=== PATIENT | male | born 1965 | race Two or more races ===

== ENCOUNTER 2020-10-01 18:05 | Inpatient (IN) | payer MEDICARE, MEDICAID ==
[~2020-10-01] VITALS: Ht 170.2 cm; Wt 75.5 kg
[2020-10-01 23:21] LABS: Urine Bacteria NONE SEEN /hpf (None Seen); Urine Blood 1+ /uL (Negative); Urine Budding Yeast MANY /hpf (None Seen); Urine Hyaline Cast FEW /lpf (0 - 2); Urine Specific Gravity 1.018 (1.001-1.035); Urine WBC 5 /hpf (0 - 3)
[2020-10-02 00:33] LABS: Basophils # (auto) 0 10 ^3/uL (0-0.2); Basophils % (auto) 0.2 % (0.0-2.0); Eosinophils # (auto) 0 10 ^3/uL (0-0.8); Hematocrit 48.8 % (41.0-53.0); Hemoglobin 15.1 g/dL (13.5-17.5); Lymphocytes # (auto) 0.3 10 ^3/uL (0.4-5.4); Lymphocytes % (auto) 2.3 % (10.0-50.0); Mean Corpuscular Hemoglobin 29.1 pg (28.0-32.0); Mean Corpuscular Volume 93.9 fL (80.0-100.0); Monocytes # (auto) 0.6 10 ^3/uL (0-1.3); Monocytes % (auto) 4.2 % (0.0-12.0); Neutrophils # (auto) 13.1 10 ^3/uL (1.6-8.6); Neutrophils % (auto) 93.3 % (37.0-80.0); Red Cell Distribution Width 17.3 % (11.8-14.3); White Blood Cell 14.1 10^3/uL (4.4-10.8)
[2020-10-02 01:09] LABS: Anion Gap 19 (5-15); Calcium 8.8 mg/dL (8.5-10.1); Carbon Dioxide 13 mmol/L (21-32); Chloride 113 mmol/L (98-107); Sodium 145 mmol/L (136-145)
[2020-10-02 01:18] LABS: Alanine Aminotransferase 10 U/L (16-61); Alkaline Phosphatase 95 U/L (45-117); Aspartate Aminotransferase 11 U/L (15-37); BUN/Creatinine Ratio 34.1; GFR African American 23 mL/min; GFR Non-African American 19 mL/min; Total Protein 7.9 g/dL (6.4-8.2)
[2020-10-02 01:21] LABS: Bilirubin, Total 0.5 mg/dL (0.2-1.0)
[2020-10-02 01:25] LABS: Blood Urea Nitrogen 120 mg/dL (7-18); Glucose 931 mg/dL (74-106); Magnesium 4.2 mg/dL (1.6-2.6); Potassium 6.5 mmol/L (3.5-5.1)
[2020-10-02] MEDS ORDERED: InsuLIN R (HUMAN) 100 UNITS in SODIUM CHL 0.9% 99 ML IV SCH (01:30)
[2020-10-02] MEDS ORDERED: INSULIN LANTUS (GLARGINE) 1 /0.01ml (100units/ml) SC ONE ×2 (01:30→06:35)
[2020-10-02] MEDS ORDERED: DEXTROSE (50%) 50ML SYRG IV PRN (01:30)
[2020-10-02] MEDS: ACCU-CHEK COMFORT CURVE STRIP VI SCH ×14 (01:55→21:14)
[2020-10-02] MEDS ORDERED: InsuLIN REG 1unit/0.01ml Soln (100units/ml) ONE (02:07)
[2020-10-02] MEDS: InsuLIN R (HUMAN) 100 UNITS in SODIUM CHL 0.9% 99 ML IV SCH ×2 (05:15→15:49)
[2020-10-02] MEDS ORDERED: SOD CHL 0.45% 1,000 ML IV ONE (06:00)
[2020-10-02] MEDS ORDERED: DOCUSATE SOD 100 MG CAP PO PRN (06:00)
[2020-10-02] MEDS ORDERED: MORPHINE SULFATE INJECTION 2 MG/ML SYRG IV PRN (06:00)
[2020-10-02] MEDS ORDERED: NITROGLYCERIN 0.4 MG SL TAB SL PRN (06:00)
[2020-10-02] MEDS ORDERED: HYDROcodone-ACET 5/325MG TAB PO PRN (06:00)
[2020-10-02] MEDS: INSULIN LANTUS (GLARGINE) 1 /0.01ml (100units/ml) SC SCH ×3 (06:37→21:16)
[2020-10-02] MEDS: AZITHROMYCIN 500MG/ 250ML 250 ML IV SCH (07:58)
[2020-10-02] MEDS ORDERED: cefTRIAXone 1GM/50ML D5W 50 ML IV SCH (09:00)
[2020-10-02 09:08] LABS: Basophils # (auto) 0 10 ^3/uL (0-0.2); Basophils % (auto) 0.1 % (0.0-2.0); Eosinophils # (auto) 0 10 ^3/uL (0-0.8); Hematocrit 52.3 % (41.0-53.0); Lymphocytes # (auto) 0.3 10 ^3/uL (0.4-5.4); Lymphocytes % (auto) 2.4 % (10.0-50.0); Mean Corpuscular Hemoglobin 29.2 pg (28.0-32.0); Mean Corpuscular Hgb Conc. 32.5 g/dL (32.0-36.0); Mean Corpuscular Volume 89.7 fL (80.0-100.0); Monocytes # (auto) 0.4 10 ^3/uL (0-1.3); Monocytes % (auto) 3.3 % (0.0-12.0); Neutrophils # (auto) 12.5 10 ^3/uL (1.6-8.6); Neutrophils % (auto) 94.2 % (37.0-80.0); Nucleated Red Blood Cells % 0.1 %; Red Blood Cells 5.83 10^6/uL (4.5-5.90); Red Cell Distribution Width 16.5 % (11.8-14.3); White Blood Cell 13.3 10^3/uL (4.4-10.8)
[2020-10-02] MEDS ORDERED: AZITHROMYCIN 500MG/ 250ML 250 ML IV SCH (10:00)
[2020-10-02] MEDS: ZINC SULFATE 220mg CAP or TAB PO SCH (10:00)
[2020-10-02] MEDS: MULTIPLE VITAMIN TAB PO SCH (10:00)
[2020-10-02] MEDS: FAMOTIDINE 20 MG TAB PO SCH (10:00)
[2020-10-02] MEDS ORDERED: FAMOTIDINE 20 MG TAB PO SCH (10:00)
[2020-10-02 10:05] LABS: Calcium 9.6 mg/dL (8.5-10.1); Potassium 5.5 mmol/L (3.5-5.1)
[2020-10-02 10:14] LABS: BUN/Creatinine Ratio 31.9; Bilirubin, Total 0.4 mg/dL (0.2-1.0); Total Protein 9.4 g/dL (6.4-8.2)
[2020-10-02 10:29] LABS: Magnesium 4.7 mg/dL (1.6-2.6)
[2020-10-02 12:00] LABS: Albumin 2.3 g/dL (3.4-5.0)
[2020-10-02] MEDS ORDERED: LORazepam 2MG/ML-1ML VIAL IV ONE (15:00)
[2020-10-02] MEDS ORDERED: LORazepam 2MG/ML-1ML VIAL ONE (15:01)
[2020-10-02] MEDS ORDERED: cefTRIAXone 1GM/50ML D5W 50 ML IV ONE (15:45)
[2020-10-02] MEDS ORDERED: SODIUM BICARBONATE 8.4% INJ 50ML SYRINGE ONE ×3 (17:04→20:18)
[2020-10-02] MEDS ORDERED: ETOMIDATE (2MG/ML) 20ML VIAL IV ONE ×2 (17:06→17:30)
[2020-10-02] MEDS ORDERED: SUCCINYLCHOLINE CHLORIDE 20 MG/ML 10ML VIAL IV ONE ×2 (17:06→17:30)
[2020-10-02] MEDS ORDERED: PROPOFOL 100 ML IV ONE (17:08)
[2020-10-02] MEDS ORDERED: fentaNYL Drip 2500mCg/250mlNS 250 ML IV ONE (17:08)
[2020-10-02 17:21] VITALS: BP 72/47
[2020-10-02] MEDS ORDERED: NOREPINEPHRINE 8 MG/250ML KIT 250 ML IV ONE (17:29)
[2020-10-02] MEDS: fentaNYL Drip 2500mCg/250mlNS 250 ML IV SCH (17:30)
[2020-10-02] MEDS ORDERED: ENOXAPARIN SOD 40 MG/0.4 ML SYRINGE SC ONE (18:30)
[2020-10-02] MEDS ORDERED: SODIUM BICARBONATE 8.4 % INJ 50ML VIAL IV ONE (18:30)
[2020-10-02] MEDS: NOREPINEPHRINE 8 MG/250ML KIT 250 ML IV SCH (19:07)
[2020-10-02 19:15] LABS: BUN/Creatinine Ratio 27.9; Calcium 8.7 mg/dL (8.5-10.1)
[2020-10-02 19:31] LABS: Potassium 6.1 mmol/L (3.5-5.1)
[2020-10-02] MEDS: PROPOFOL 100 ML IV SCH (20:03)
[2020-10-02] MEDS: MIDAZOLAM DRIP 50 mg/50mL 50 ML IV SCH (20:04)
[2020-10-02] MEDS: SODIUM BICARBONATE 50ML VIAL 50 ML in SOD CHL 0.45% 1,000 ML IV SCH (20:34)
[2020-10-02] MEDS ORDERED: InsuLIN REG 1unit/0.01ml Soln (100units/ml) IV ONE (21:30)
[2020-10-02] MEDS ORDERED: DEXTROSE (50%) 50ML SYRG IV ONE (21:30)
[2020-10-02] MEDS ORDERED: SODIUM ZIRCONIUM CYCL 10 GM PAK PO ONE (21:30)
[2020-10-02 22:19] VITALS: BP 135/70
[2020-10-03] MEDS: InsuLIN REG 1unit/0.01ml Soln (100units/ml) SC SCH ×6 (00:14→20:35)
[2020-10-03] MEDS: ACCU-CHEK COMFORT CURVE STRIP VI SCH ×6 (00:14→20:34)
[2020-10-03 02:45] VITALS: BP 127/81
[2020-10-03] MEDS: ACETAMINOPHEN 325 MG TAB PO PRN ×3 (04:04→19:56)
[2020-10-03] MEDS ORDERED: SODIUM BICARBONATE 8.4% INJ 50ML SYRINGE ONE (04:14)
[2020-10-03] MEDS: SODIUM BICARBONATE 50ML VIAL 50 ML in SOD CHL 0.45% 1,000 ML IV SCH (05:17)
[2020-10-03 06:29] VITALS: BP 98/60
[2020-10-03 07:48] LABS: Hematocrit 40.5 % (41.0-53.0); Hemoglobin 13.9 g/dL (13.5-17.5); Mean Corpuscular Hemoglobin 29.6 pg (28.0-32.0); Mean Corpuscular Hgb Conc. 34.2 g/dL (32.0-36.0); Mean Corpuscular Volume 86.4 fL (80.0-100.0); Red Blood Cells 4.68 10^6/uL (4.5-5.90); Red Cell Distribution Width 15.8 % (11.8-14.3); White Blood Cell 11.2 10^3/uL (4.4-10.8)
[2020-10-03 08:01] LABS: Basophils % (manual) 0 (0.0-2.0); Blast Cells 0; Eosinophils % (manual) 0 (0-7); Myelocytes % 0; Promyelocytes % 0; Reactive Lymphocytes 0
[2020-10-03 08:09] LABS: Potassium 4.7 mmol/L (3.5-5.1)
[2020-10-03 08:21] LABS: Albumin 1.6 g/dL (3.4-5.0); BUN/Creatinine Ratio 35.1; Bilirubin, Total 0.4 mg/dL (0.2-1.0); Calcium 8.6 mg/dL (8.5-10.1)
[2020-10-03] MEDS: cefTRIAXone 1GM/50ML D5W 50 ML IV SCH (08:25)
[2020-10-03] MEDS: ZINC SULFATE 220mg CAP or TAB PO SCH (08:25)
[2020-10-03] MEDS: MULTIPLE VITAMIN TAB PO SCH (08:25)
[2020-10-03] MEDS: AZITHROMYCIN 500MG/ 250ML 250 ML IV SCH (08:28)
[2020-10-03 08:52] LABS: Band Neutrophils % (manual) 15; Lymphocytes % (manual) 2 (10.0-50.0); Metamyelocytes % 1; Monocytes % (manual) 2 (0-12)
[2020-10-03] MEDS: ENOXAPARIN SOD 40 MG/0.4 ML SYRINGE SC SCH (09:47)
[2020-10-03] MEDS ORDERED: INSULIN LANTUS (GLARGINE) 1 /0.01ml (100units/ml) SC SCH (10:00)
[2020-10-03] MEDS: D5W 5% 1,000 ML IV SCH ×2 (10:13→19:43)
[2020-10-03] MEDS: INSULIN LANTUS (GLARGINE) 1 /0.01ml (100units/ml) SC SCH (10:19)
[2020-10-03] MEDS: MIDAZOLAM DRIP 50 mg/50mL 50 ML IV SCH ×2 (13:15→23:35)
[2020-10-03 13:43] VITALS: BP 123/80
[2020-10-03] MEDS: DexAMETHasone SOD PHOS 10MG/1ML VIAL INJ IV SCH (14:35)
[2020-10-03] MEDS: fentaNYL Drip 2500mCg/250mlNS 250 ML IV SCH (15:00)
[2020-10-03] MEDS: PROPOFOL 100 ML IV SCH (17:30)
[2020-10-03 18:47] VITALS: BP 115/60
[2020-10-03] MEDS: NOREPINEPHRINE 8 MG/250ML KIT 250 ML IV SCH (20:19)
[2020-10-03 22:52] VITALS: BP 102/61
[2020-10-04] VITALS (7 sets, daily range): BP systolic 107–133; BP diastolic 62–72
[2020-10-04] MEDS: InsuLIN REG 1unit/0.01ml Soln (100units/ml) SC SCH ×6 (00:03→20:30)
[2020-10-04] MEDS: ACCU-CHEK COMFORT CURVE STRIP VI SCH ×6 (00:04→20:30)
[2020-10-04] MEDS: FREE WATER NG SCH ×6 (01:54→22:17)
[2020-10-04] MEDS: D5W 5% 1,000 ML IV SCH ×2 (05:53→15:03)
[2020-10-04] MEDS: MIDAZOLAM DRIP 50 mg/50mL 50 ML IV SCH ×2 (05:54→11:03)
[2020-10-04] MEDS: fentaNYL Drip 2500mCg/250mlNS 250 ML IV SCH (05:54)
[2020-10-04] MEDS ORDERED: INSULIN LANTUS (GLARGINE) 1 /0.01ml (100units/ml) SC SCH (07:00)
[2020-10-04 09:31] LABS: Basophils # (auto) 0 10 ^3/uL (0-0.2); Basophils % (auto) 0.1 % (0.0-2.0); Eosinophils # (auto) 0 10 ^3/uL (0-0.8); Hematocrit 37.7 % (41.0-53.0); Hemoglobin 12.2 g/dL (13.5-17.5); Lymphocytes # (auto) 0.1 10 ^3/uL (0.4-5.4); Lymphocytes % (auto) 1.2 % (10.0-50.0); Mean Corpuscular Hemoglobin 28.6 pg (28.0-32.0); Mean Corpuscular Hgb Conc. 32.4 g/dL (32.0-36.0); Mean Corpuscular Volume 88.2 fL (80.0-100.0); Monocytes # (auto) 0.2 10 ^3/uL (0-1.3); Monocytes % (auto) 1.8 % (0.0-12.0); Neutrophils # (auto) 12.3 10 ^3/uL (1.6-8.6); Neutrophils % (auto) 96.9 % (37.0-80.0); Potassium 4.7 mmol/L (3.5-5.1); Red Blood Cells 4.28 10^6/uL (4.5-5.90); Red Cell Distribution Width 16.4 % (11.8-14.3); White Blood Cell 12.7 10^3/uL (4.4-10.8)
[2020-10-04] MEDS: DexAMETHasone SOD PHOS 10MG/1ML VIAL INJ IV SCH (09:37)
[2020-10-04] MEDS: AZITHROMYCIN 500MG/ 250ML 250 ML IV SCH (09:37)
[2020-10-04] MEDS: MULTIPLE VITAMIN TAB PO SCH (09:37)
[2020-10-04] MEDS: cefTRIAXone 1GM/50ML D5W 50 ML IV SCH (09:37)
[2020-10-04] MEDS: ZINC SULFATE 220mg CAP or TAB PO SCH (09:37)
[2020-10-04] MEDS: ENOXAPARIN SOD 40 MG/0.4 ML SYRINGE SC SCH (09:38)
[2020-10-04] MEDS: FAMOTIDINE 20 MG TAB PO SCH (09:38)
[2020-10-04 10:13] LABS: Bilirubin, Total 0.4 mg/dL (0.2-1.0); Total Protein 6.7 g/dL (6.4-8.2)
[2020-10-04 11:09] LABS: BUN/Creatinine Ratio 40.5
[2020-10-04 11:54] LABS: Albumin 1.6 g/dL (3.4-5.0); Calcium 9.1 mg/dL (8.5-10.1)
[2020-10-04] MEDS: PROPOFOL 100 ML IV SCH (17:30)
[2020-10-04] MEDS: NOREPINEPHRINE 8 MG/250ML KIT 250 ML IV SCH (17:33)
[2020-10-04] MEDS ORDERED: SOD CHL 0.45% 1,000 ML IV ONE (18:15)
[2020-10-04] MEDS: INSULIN LANTUS (GLARGINE) 1 /0.01ml (100units/ml) SC SCH (20:30)
[2020-10-05] MEDS: InsuLIN REG 1unit/0.01ml Soln (100units/ml) SC SCH ×6 (00:01→21:00)
[2020-10-05] MEDS: ACCU-CHEK COMFORT CURVE STRIP VI SCH ×6 (00:01→21:00)
[2020-10-05 00:45] VITALS: BP 141/69
[2020-10-05] MEDS: FREE WATER NG SCH ×7 (02:03→22:05)
[2020-10-05 02:20] VITALS: BP 138/70
[2020-10-05 06:22] LABS: Basophils # (auto) 0.1 10 ^3/uL (0-0.2); Basophils % (auto) 1.2 % (0.0-2.0); Eosinophils # (auto) 0 10 ^3/uL (0-0.8); Hematocrit 32.9 % (41.0-53.0); Hemoglobin 11.2 g/dL (13.5-17.5); Lymphocytes # (auto) 0.1 10 ^3/uL (0.4-5.4); Lymphocytes % (auto) 1.6 % (10.0-50.0); Mean Corpuscular Hemoglobin 29.5 pg (28.0-32.0); Mean Corpuscular Hgb Conc. 33.9 g/dL (32.0-36.0); Mean Corpuscular Volume 86.9 fL (80.0-100.0); Monocytes # (auto) 0.2 10 ^3/uL (0-1.3); Monocytes % (auto) 1.8 % (0.0-12.0); Neutrophils # (auto) 8.4 10 ^3/uL (1.6-8.6); Neutrophils % (auto) 95.4 % (37.0-80.0); Red Blood Cells 3.79 10^6/uL (4.5-5.90); Red Cell Distribution Width 15.8 % (11.8-14.3); White Blood Cell 8.8 10^3/uL (4.4-10.8)
[2020-10-05] MEDS: INSULIN LANTUS (GLARGINE) 1 /0.01ml (100units/ml) SC SCH (06:42)
[2020-10-05 06:54] LABS: Potassium 4.9 mmol/L (3.5-5.1)
[2020-10-05 07:01] LABS: Albumin 1.5 g/dL (3.4-5.0); BUN/Creatinine Ratio 46.4; Bilirubin, Total 0.3 mg/dL (0.2-1.0); Calcium 8.6 mg/dL (8.5-10.1); Total Protein 6.5 g/dL (6.4-8.2)
[2020-10-05 07:02] VITALS: BP 108/63
[2020-10-05] MEDS: cefTRIAXone 1GM/50ML D5W 50 ML IV SCH (08:40)
[2020-10-05] MEDS: ENOXAPARIN SOD 40 MG/0.4 ML SYRINGE SC SCH (08:40)
[2020-10-05] MEDS: AZITHROMYCIN 500MG/ 250ML 250 ML IV SCH (08:40)
[2020-10-05] MEDS: ZINC SULFATE 220mg CAP or TAB PO SCH (08:40)
[2020-10-05] MEDS: DexAMETHasone SOD PHOS 10MG/1ML VIAL INJ IV SCH (08:40)
[2020-10-05] MEDS: MULTIPLE VITAMIN TAB PO SCH (08:40)
[2020-10-05] MEDS ORDERED: cefTRIAXone SOD 1,000 MG VL ONE (08:53)
[2020-10-05 13:08] VITALS: BP 129/70
[2020-10-05] MEDS ORDERED: LINEZOLID 600MG/300ML 300 ML IV ONE (13:35)
[2020-10-05] MEDS: LINEZOLID 600MG/300ML 300 ML IV SCH ×2 (13:37→22:05)
[2020-10-05] MEDS: SOD CHL 0.45% 1,000 ML IV SCH (16:39)
[2020-10-05] MEDS: NOREPINEPHRINE 8 MG/250ML KIT 250 ML IV SCH (17:30)
[2020-10-05] MEDS: PROPOFOL 100 ML IV SCH (17:30)
[2020-10-05] MEDS: fentaNYL Drip 2500mCg/250mlNS 250 ML IV SCH (17:50)
[2020-10-05] MEDS: MIDAZOLAM DRIP 50 mg/50mL 50 ML IV SCH (17:51)
[2020-10-05 19:30] VITALS: BP 103/57
[2020-10-05 22:45] VITALS: BP 103/57
[2020-10-06] VITALS (7 sets, daily range): BP systolic 116–187; BP diastolic 59–104
[2020-10-06] MEDS: FREE WATER NG SCH ×6 (02:15→21:24)
[2020-10-06] MEDS: SOD CHL 0.45% 1,000 ML IV SCH ×3 (02:38→21:24)
[2020-10-06] MEDS: ACCU-CHEK COMFORT CURVE STRIP VI SCH ×6 (03:50→21:25)
[2020-10-06] MEDS: InsuLIN REG 1unit/0.01ml Soln (100units/ml) SC SCH ×6 (03:51→21:36)
[2020-10-06] MEDS: INSULIN LANTUS (GLARGINE) 1 /0.01ml (100units/ml) SC SCH (06:20)
[2020-10-06 06:41] LABS: Basophils # (auto) 0 10 ^3/uL (0-0.2); Basophils % (auto) 0.1 % (0.0-2.0); Eosinophils # (auto) 0 10 ^3/uL (0-0.8); Hematocrit 33.9 % (41.0-53.0); Hemoglobin 11.1 g/dL (13.5-17.5); Lymphocytes # (auto) 0.1 10 ^3/uL (0.4-5.4); Lymphocytes % (auto) 1.9 % (10.0-50.0); Mean Corpuscular Hemoglobin 28.5 pg (28.0-32.0); Mean Corpuscular Hgb Conc. 32.8 g/dL (32.0-36.0); Mean Corpuscular Volume 86.9 fL (80.0-100.0); Monocytes # (auto) 0.2 10 ^3/uL (0-1.3); Monocytes % (auto) 4.1 % (0.0-12.0); Neutrophils # (auto) 5.5 10 ^3/uL (1.6-8.6); Neutrophils % (auto) 93.9 % (37.0-80.0); Nucleated Red Blood Cells % 0.3 %; Red Cell Distribution Width 15.7 % (11.8-14.3); White Blood Cell 5.8 10^3/uL (4.4-10.8)
[2020-10-06 06:46] LABS: Albumin 1.4 g/dL (3.4-5.0); Calcium 8.2 mg/dL (8.5-10.1); Potassium 5.3 mmol/L (3.5-5.1)
[2020-10-06 06:51] LABS: BUN/Creatinine Ratio 53.6; Bilirubin, Total 0.3 mg/dL (0.2-1.0); Total Protein 6.2 g/dL (6.4-8.2)
[2020-10-06] MEDS ORDERED: ACETAMINOPHEN 325 MG TAB PO PRN (09:30)
[2020-10-06] MEDS: AZITHROMYCIN 500MG/ 250ML 250 ML IV SCH (09:57)
[2020-10-06] MEDS: LINEZOLID 600MG/300ML 300 ML IV SCH ×2 (09:57→21:32)
[2020-10-06] MEDS: DexAMETHasone SOD PHOS 10MG/1ML VIAL INJ IV SCH (09:57)
[2020-10-06] MEDS: ZINC SULFATE 220mg CAP or TAB PO SCH (09:58)
[2020-10-06] MEDS: MULTIPLE VITAMIN TAB PO SCH (09:58)
[2020-10-06] MEDS: ENOXAPARIN SOD 40 MG/0.4 ML SYRINGE SC SCH (09:58)
[2020-10-06] MEDS: FAMOTIDINE 20 MG TAB PO SCH (09:58)
[2020-10-06] MEDS: hydrALAZINE HCL 20 MG/ML VL IV PRN ×2 (11:32→18:16)
[2020-10-06] MEDS: PROPOFOL 100 ML IV SCH (12:21)
[2020-10-06] MEDS: fentaNYL Drip 2500mCg/250mlNS 250 ML IV SCH (12:21)
[2020-10-06] MEDS: MIDAZOLAM DRIP 50 mg/50mL 50 ML IV SCH (12:22)
[2020-10-06] MEDS: NOREPINEPHRINE 8 MG/250ML KIT 250 ML IV SCH (12:22)
[2020-10-06] MEDS ORDERED: SODIUM BICARBONATE 8.4% INJ 50ML SYRINGE IV ONE (18:15)
[2020-10-06] MEDS ORDERED: DEXTROSE (50%) 50ML SYRG IV ONE (18:15)
[2020-10-06] MEDS ORDERED: ALBUTEROL SULF 2.5 MG/0.5ML(0.5%) NEB SOLN NEB ONE (18:15)
[2020-10-06] MEDS ORDERED: InsuLIN REG 1unit/0.01ml Soln (100units/ml) IV ONE (18:15)
[2020-10-07] MEDS: ACCU-CHEK COMFORT CURVE STRIP VI SCH ×6 (00:16→20:30)
[2020-10-07] MEDS: InsuLIN REG 1unit/0.01ml Soln (100units/ml) SC SCH ×6 (00:18→21:00)
[2020-10-07] MEDS: FREE WATER NG SCH ×6 (01:40→22:00)
[2020-10-07 02:20] VITALS: BP 153/78
[2020-10-07] MEDS: INSULIN LANTUS (GLARGINE) 1 /0.01ml (100units/ml) SC SCH (06:16)
[2020-10-07 07:12] VITALS: BP 183/93
[2020-10-07 07:25] LABS: Red Cell Distribution Width 15.2 % (11.8-14.3)
[2020-10-07 07:35] LABS: Potassium 4.4 mmol/L (3.5-5.1)
[2020-10-07 07:50] LABS: Hematocrit 39.4 % (41.0-53.0); Hemoglobin 13.5 g/dL (13.5-17.5); Mean Corpuscular Hemoglobin 29.1 pg (28.0-32.0); Mean Corpuscular Hgb Conc. 34.2 g/dL (32.0-36.0); Mean Corpuscular Volume 84.9 fL (80.0-100.0); Red Blood Cells 4.64 10^6/uL (4.5-5.90)
[2020-10-07 07:53] LABS: Basophils % (manual) 0 (0.0-2.0); Blast Cells 0; Eosinophils % (manual) 0 (0-7); Metamyelocytes % 0; Promyelocytes % 0; Reactive Lymphocytes 0
[2020-10-07] MEDS: ACETAMINOPHEN 325 MG TAB PO PRN (07:55)
[2020-10-07] MEDS: SOD CHL 0.45% 1,000 ML IV SCH ×2 (07:56→17:47)
[2020-10-07 08:02] LABS: Albumin 1.7 g/dL (3.4-5.0); BUN/Creatinine Ratio 47.7; Bilirubin, Total 0.4 mg/dL (0.2-1.0); CRP High Sensitivity 3.89 mg/dL (< 0.3); Calcium 8.6 mg/dL (8.5-10.1); Total Protein 7.4 g/dL (6.4-8.2)
[2020-10-07] MEDS: hydrALAZINE HCL 20 MG/ML VL IV PRN ×2 (09:04→17:47)
[2020-10-07] MEDS: ZINC SULFATE 220mg CAP or TAB PO SCH (09:51)
[2020-10-07] MEDS: DexAMETHasone SOD PHOS 10MG/1ML VIAL INJ IV SCH (09:51)
[2020-10-07] MEDS: MULTIPLE VITAMIN TAB PO SCH (09:51)
[2020-10-07] MEDS: LINEZOLID 600MG/300ML 300 ML IV SCH ×2 (09:51→22:00)
[2020-10-07] MEDS: AZITHROMYCIN 500MG/ 250ML 250 ML IV SCH (09:51)
[2020-10-07] MEDS: ENOXAPARIN SOD 40 MG/0.4 ML SYRINGE SC SCH (09:52)
[2020-10-07] MEDS: FAMOTIDINE 20 MG TAB PO SCH (09:52)
[2020-10-07 12:04] LABS: Band Neutrophils % (manual) 15; Lymphocytes % (manual) 3 (10.0-50.0); Monocytes % (manual) 1 (0-12); Myelocytes % 4
[2020-10-07 13:53] VITALS: BP 131/77
[2020-10-07] MEDS: fentaNYL Drip 2500mCg/250mlNS 250 ML IV SCH (16:01)
[2020-10-07] MEDS: NOREPINEPHRINE 8 MG/250ML KIT 250 ML IV SCH (16:02)
[2020-10-07] MEDS: PROPOFOL 100 ML IV SCH (16:02)
[2020-10-07] MEDS: MIDAZOLAM DRIP 50 mg/50mL 50 ML IV SCH (16:02)
[2020-10-07 19:00] VITALS: BP 135/79
[2020-10-07] MEDS ORDERED: LORazepam 2MG/ML-1ML VIAL IV ONE (21:00)
[2020-10-07 22:35] VITALS: BP 136/78
[2020-10-08] MEDS: ACCU-CHEK COMFORT CURVE STRIP VI SCH ×6 (00:45→21:04)
[2020-10-08] MEDS: InsuLIN REG 1unit/0.01ml Soln (100units/ml) SC SCH ×6 (00:45→21:07)
[2020-10-08] MEDS: FREE WATER NG SCH ×5 (01:29→17:51)
[2020-10-08 02:30] VITALS: BP 132/77
[2020-10-08] MEDS: SOD CHL 0.45% 1,000 ML IV SCH ×2 (04:53→14:01)
[2020-10-08 06:00] VITALS: BP 128/75
[2020-10-08] MEDS: INSULIN LANTUS (GLARGINE) 1 /0.01ml (100units/ml) SC SCH (06:28)
[2020-10-08 07:43] LABS: Basophils # (auto) 0 10 ^3/uL (0-0.2); Basophils % (auto) 0.1 % (0.0-2.0); Eosinophils # (auto) 0 10 ^3/uL (0-0.8); Hematocrit 34.6 % (41.0-53.0); Hemoglobin 11.7 g/dL (13.5-17.5); Lymphocytes # (auto) 0.3 10 ^3/uL (0.4-5.4); Lymphocytes % (auto) 2.1 % (10.0-50.0); Mean Corpuscular Hemoglobin 28.9 pg (28.0-32.0); Mean Corpuscular Hgb Conc. 33.8 g/dL (32.0-36.0); Mean Corpuscular Volume 85.6 fL (80.0-100.0); Monocytes # (auto) 0.5 10 ^3/uL (0-1.3); Monocytes % (auto) 4.6 % (0.0-12.0); Neutrophils # (auto) 11.1 10 ^3/uL (1.6-8.6); Neutrophils % (auto) 93.2 % (37.0-80.0); Red Blood Cells 4.04 10^6/uL (4.5-5.90); Red Cell Distribution Width 15.1 % (11.8-14.3); White Blood Cell 11.9 10^3/uL (4.4-10.8)
[2020-10-08 08:02] LABS: Potassium 4.8 mmol/L (3.5-5.1)
[2020-10-08 08:08] LABS: Albumin 1.5 g/dL (3.4-5.0); BUN/Creatinine Ratio 44.8; Bilirubin, Total 0.7 mg/dL (0.2-1.0); Total Protein 6.4 g/dL (6.4-8.2)
[2020-10-08] MEDS: LINEZOLID 600MG/300ML 300 ML IV SCH ×2 (09:51→21:55)
[2020-10-08] MEDS: DexAMETHasone SOD PHOS 10MG/1ML VIAL INJ IV SCH (09:51)
[2020-10-08] MEDS: AZITHROMYCIN 500MG/ 250ML 250 ML IV SCH (09:51)
[2020-10-08] MEDS: ZINC SULFATE 220mg CAP or TAB PO SCH (09:51)
[2020-10-08] MEDS: ENOXAPARIN SOD 40 MG/0.4 ML SYRINGE SC SCH (09:52)
[2020-10-08] MEDS: MULTIPLE VITAMIN TAB PO SCH (09:52)
[2020-10-08] MEDS: FAMOTIDINE 20 MG TAB PO SCH (09:52)
[2020-10-08 13:25] VITALS: BP 145/81
[2020-10-08] MEDS: MIDAZOLAM DRIP 50 mg/50mL 50 ML IV SCH (16:26)
[2020-10-08] MEDS: NOREPINEPHRINE 8 MG/250ML KIT 250 ML IV SCH (16:26)
[2020-10-08] MEDS: PROPOFOL 100 ML IV SCH (16:26)
[2020-10-08] MEDS: fentaNYL Drip 2500mCg/250mlNS 250 ML IV SCH (16:26)
[2020-10-08 19:00] VITALS: BP 172/88
[2020-10-09] MEDS: ACCU-CHEK COMFORT CURVE STRIP VI SCH ×6 (00:26→20:26)
[2020-10-09] MEDS: FREE WATER NG SCH ×7 (00:28→20:26)
[2020-10-09] MEDS: FAMOTIDINE 20 MG TAB PO SCH ×3 (00:28→20:27)
[2020-10-09] MEDS: InsuLIN REG 1unit/0.01ml Soln (100units/ml) SC SCH ×6 (00:29→20:00)
[2020-10-09 02:50] VITALS: BP 143/90
[2020-10-09] MEDS: INSULIN LANTUS (GLARGINE) 1 /0.01ml (100units/ml) SC SCH (06:52)
[2020-10-09 07:03] VITALS: BP 163/88
[2020-10-09] MEDS: hydrALAZINE HCL 20 MG/ML VL IV PRN (08:07)
[2020-10-09] MEDS: AZITHROMYCIN 500MG/ 250ML 250 ML IV SCH (10:13)
[2020-10-09] MEDS: DexAMETHasone SOD PHOS 10MG/1ML VIAL INJ IV SCH (10:13)
[2020-10-09] MEDS: LINEZOLID 600MG/300ML 300 ML IV SCH ×2 (10:19→20:26)
[2020-10-09] MEDS: ZINC SULFATE 220mg CAP or TAB PO SCH (10:22)
[2020-10-09] MEDS: MULTIPLE VITAMIN TAB PO SCH (10:28)
[2020-10-09] MEDS: ENOXAPARIN SOD 40 MG/0.4 ML SYRINGE SC SCH (10:28)
[2020-10-09 10:48] VITALS: BP 133/77
[2020-10-09] MEDS: MIDAZOLAM DRIP 50 mg/50mL 50 ML IV SCH (11:37)
[2020-10-09] MEDS: fentaNYL Drip 2500mCg/250mlNS 250 ML IV SCH (11:52)
[2020-10-09 12:28] LABS: Basophils # (auto) 0 10 ^3/uL (0-0.2); Basophils % (auto) 0.1 % (0.0-2.0); Eosinophils # (auto) 0 10 ^3/uL (0-0.8); Eosinophils % (auto) 0.1 % (0.0-7.0); Hematocrit 32.8 % (41.0-53.0); Hemoglobin 11.2 g/dL (13.5-17.5); Lymphocytes # (auto) 0.2 10 ^3/uL (0.4-5.4); Lymphocytes % (auto) 1.2 % (10.0-50.0); Mean Corpuscular Hemoglobin 29.2 pg (28.0-32.0); Mean Corpuscular Hgb Conc. 34.1 g/dL (32.0-36.0); Mean Corpuscular Volume 85.6 fL (80.0-100.0); Monocytes # (auto) 0.4 10 ^3/uL (0-1.3); Monocytes % (auto) 3.1 % (0.0-12.0); Neutrophils # (auto) 12.6 10 ^3/uL (1.6-8.6); Neutrophils % (auto) 95.5 % (37.0-80.0); Red Blood Cells 3.82 10^6/uL (4.5-5.90); Red Cell Distribution Width 14.8 % (11.8-14.3); White Blood Cell 13.2 10^3/uL (4.4-10.8)
[2020-10-09 12:43] LABS: Calcium 7.3 mg/dL (8.5-10.1); Potassium 4.6 mmol/L (3.5-5.1)
[2020-10-09 12:49] LABS: Albumin 1.4 g/dL (3.4-5.0); BUN/Creatinine Ratio 41.6; Bilirubin, Total 0.6 mg/dL (0.2-1.0)
[2020-10-09 14:40] VITALS: BP 125/82
[2020-10-09] MEDS: NOREPINEPHRINE 8 MG/250ML KIT 250 ML IV SCH (17:30)
[2020-10-09] MEDS: PROPOFOL 100 ML IV SCH (17:30)
[2020-10-09 18:00] VITALS: BP 139/85
[2020-10-09 22:40] VITALS: BP 130/75
[2020-10-10] VITALS (83 sets, daily range): BP systolic 78–145; BP diastolic 51–82
[2020-10-10] MEDS: FREE WATER NG SCH ×6 (01:24→23:58)
[2020-10-10] MEDS: InsuLIN REG 1unit/0.01ml Soln (100units/ml) SC SCH ×6 (04:00→23:58)
[2020-10-10] MEDS: ACCU-CHEK COMFORT CURVE STRIP VI SCH ×6 (04:13→23:59)
[2020-10-10 05:51] LABS: Basophils # (auto) 0.1 10 ^3/uL (0-0.2); Basophils % (auto) 0.5 % (0.0-2.0); Eosinophils # (auto) 0 10 ^3/uL (0-0.8); Eosinophils % (auto) 0.1 % (0.0-7.0); Hematocrit 34.3 % (41.0-53.0); Hemoglobin 11.6 g/dL (13.5-17.5); Lymphocytes # (auto) 0.4 10 ^3/uL (0.4-5.4); Lymphocytes % (auto) 2.8 % (10.0-50.0); Mean Corpuscular Hemoglobin 28.6 pg (28.0-32.0); Mean Corpuscular Hgb Conc. 33.7 g/dL (32.0-36.0); Mean Corpuscular Volume 84.8 fL (80.0-100.0); Monocytes # (auto) 0.5 10 ^3/uL (0-1.3); Monocytes % (auto) 3.4 % (0.0-12.0); Neutrophils # (auto) 13.2 10 ^3/uL (1.6-8.6); Neutrophils % (auto) 93.2 % (37.0-80.0); Nucleated Red Blood Cells % 0.1 %; Red Blood Cells 4.05 10^6/uL (4.5-5.90); Red Cell Distribution Width 14.6 % (11.8-14.3); White Blood Cell 14.2 10^3/uL (4.4-10.8)
[2020-10-10 06:19] LABS: Potassium 4.7 mmol/L (3.5-5.1)
[2020-10-10 06:30] LABS: Albumin 1.5 g/dL (3.4-5.0); BUN/Creatinine Ratio 44.3; Bilirubin, Total 0.8 mg/dL (0.2-1.0); Calcium 7.6 mg/dL (8.5-10.1); Total Protein 6.4 g/dL (6.4-8.2)
[2020-10-10] MEDS: INSULIN LANTUS (GLARGINE) 1 /0.01ml (100units/ml) SC SCH (07:00)
[2020-10-10] MEDS: AZITHROMYCIN 500MG/ 250ML 250 ML IV SCH (08:46)
[2020-10-10] MEDS: MULTIPLE VITAMIN TAB PO SCH (09:23)
[2020-10-10] MEDS: FAMOTIDINE 20 MG TAB PO SCH ×2 (09:23→22:09)
[2020-10-10] MEDS: ENOXAPARIN SOD 40 MG/0.4 ML SYRINGE SC SCH (09:23)
[2020-10-10] MEDS: DexAMETHasone SOD PHOS 10MG/1ML VIAL INJ IV SCH (09:23)
[2020-10-10] MEDS: ZINC SULFATE 220mg CAP or TAB PO SCH (09:23)
[2020-10-10] MEDS ORDERED: levoFLOXacin 500MG 100 ML IV ONE (11:00)
[2020-10-10] MEDS: LINEZOLID 600MG/300ML 300 ML IV SCH ×2 (11:40→22:09)
[2020-10-10] MEDS: MIDAZOLAM DRIP 50 mg/50mL 50 ML IV SCH ×2 (12:16→22:28)
[2020-10-10] MEDS: fentaNYL Drip 2500mCg/250mlNS 250 ML IV SCH (17:30)
[2020-10-10] MEDS: NOREPINEPHRINE 8 MG/250ML KIT 250 ML IV SCH (17:30)
[2020-10-10] MEDS: PROPOFOL 100 ML IV SCH (17:30)
[2020-10-11] VITALS (96 sets, daily range): BP systolic 80–172; BP diastolic 10–95
[2020-10-11] MEDS: InsuLIN REG 1unit/0.01ml Soln (100units/ml) SC SCH ×4 (00:02→17:28)
[2020-10-11] MEDS: FREE WATER NG SCH ×3 (05:50→17:29)
[2020-10-11 05:57] LABS: Basophils # (auto) 0 10 ^3/uL (0-0.2); Basophils % (auto) 0.2 % (0.0-2.0); Eosinophils # (auto) 0 10 ^3/uL (0-0.8); Eosinophils % (auto) 0.1 % (0.0-7.0); Hematocrit 34.3 % (41.0-53.0); Hemoglobin 11.6 g/dL (13.5-17.5); Lymphocytes # (auto) 0.4 10 ^3/uL (0.4-5.4); Lymphocytes % (auto) 3.9 % (10.0-50.0); Mean Corpuscular Hemoglobin 28.7 pg (28.0-32.0); Mean Corpuscular Hgb Conc. 33.8 g/dL (32.0-36.0); Mean Corpuscular Volume 84.8 fL (80.0-100.0); Monocytes # (auto) 0.5 10 ^3/uL (0-1.3); Monocytes % (auto) 4.5 % (0.0-12.0); Neutrophils # (auto) 10.5 10 ^3/uL (1.6-8.6); Neutrophils % (auto) 91.3 % (37.0-80.0); Nucleated Red Blood Cells % 0.1 %; Red Blood Cells 4.04 10^6/uL (4.5-5.90); Red Cell Distribution Width 14.6 % (11.8-14.3); White Blood Cell 11.5 10^3/uL (4.4-10.8)
[2020-10-11] MEDS: ACCU-CHEK COMFORT CURVE STRIP VI SCH ×3 (06:00→17:29)
[2020-10-11 06:07] LABS: Potassium 4.8 mmol/L (3.5-5.1)
[2020-10-11 06:12] LABS: BUN/Creatinine Ratio 47.9; Calcium 7.8 mg/dL (8.5-10.1)
[2020-10-11] MEDS: INSULIN LANTUS (GLARGINE) 1 /0.01ml (100units/ml) SC SCH (06:48)
[2020-10-11] MEDS: fentaNYL Drip 2500mCg/250mlNS 250 ML IV SCH (06:57)
[2020-10-11] MEDS: levoFLOXacin 500MG 100 ML IV SCH (09:45)
[2020-10-11] MEDS: DexAMETHasone SOD PHOS 10MG/1ML VIAL INJ IV SCH (09:45)
[2020-10-11] MEDS: MULTIPLE VITAMIN TAB PO SCH (09:46)
[2020-10-11] MEDS: ZINC SULFATE 220mg CAP or TAB PO SCH (09:46)
[2020-10-11] MEDS: ENOXAPARIN SOD 40 MG/0.4 ML SYRINGE SC SCH (09:46)
[2020-10-11] MEDS: FAMOTIDINE 20 MG TAB PO SCH ×2 (09:46→21:38)
[2020-10-11] MEDS: LINEZOLID 600MG/300ML 300 ML IV SCH ×2 (09:56→21:38)
[2020-10-11] MEDS: NOREPINEPHRINE 8 MG/250ML KIT 250 ML IV SCH (17:30)
[2020-10-11] MEDS: PROPOFOL 100 ML IV SCH (17:30)
[2020-10-11] MEDS: MIDAZOLAM DRIP 50 mg/50mL 50 ML IV SCH (21:38)
[2020-10-12] VITALS (86 sets, daily range): BP systolic 82–149; BP diastolic 54–91
[2020-10-12] MEDS: FREE WATER NG SCH ×4 (00:15→18:02)
[2020-10-12] MEDS: ACCU-CHEK COMFORT CURVE STRIP VI SCH ×4 (00:15→18:00)
[2020-10-12] MEDS: InsuLIN REG 1unit/0.01ml Soln (100units/ml) SC SCH ×4 (00:16→18:00)
[2020-10-12 04:59] LABS: Eosinophils # (auto) 0 10 ^3/uL (0-0.8); Hematocrit 34.6 % (41.0-53.0); Mean Corpuscular Hgb Conc. 33.7 g/dL (32.0-36.0); Mean Corpuscular Volume 85.6 fL (80.0-100.0); Monocytes # (auto) 0.8 10 ^3/uL (0-1.3); Neutrophils # (auto) 14.3 10 ^3/uL (1.6-8.6); White Blood Cell 15.5 10^3/uL (4.4-10.8)
[2020-10-12 05:00] LABS: Basophils # (auto) 0 10 ^3/uL (0-0.2); Basophils % (auto) 0.1 % (0.0-2.0); Hemoglobin 11.7 g/dL (13.5-17.5); Lymphocytes # (auto) 0.5 10 ^3/uL (0.4-5.4); Mean Corpuscular Hemoglobin 28.9 pg (28.0-32.0); Monocytes % (auto) 4.9 % (0.0-12.0); Nucleated Red Blood Cells % 0.1 %; Red Blood Cells 4.04 10^6/uL (4.5-5.90); Red Cell Distribution Width 14.7 % (11.8-14.3)
[2020-10-12 05:18] LABS: Albumin 1.5 g/dL (3.4-5.0); Calcium 7.6 mg/dL (8.5-10.1); Potassium 4.9 mmol/L (3.5-5.1)
[2020-10-12 05:21] LABS: BUN/Creatinine Ratio 50.7; Bilirubin, Total 0.4 mg/dL (0.2-1.0); Total Protein 6.5 g/dL (6.4-8.2)
[2020-10-12] MEDS: MIDAZOLAM DRIP 50 mg/50mL 50 ML IV SCH ×2 (06:18→22:23)
[2020-10-12] MEDS: INSULIN LANTUS (GLARGINE) 1 /0.01ml (100units/ml) SC SCH (06:34)
[2020-10-12] MEDS: levoFLOXacin 500MG 100 ML IV SCH (09:16)
[2020-10-12] MEDS: MULTIPLE VITAMIN TAB PO SCH (10:24)
[2020-10-12] MEDS: DexAMETHasone SOD PHOS 10MG/1ML VIAL INJ IV SCH (10:24)
[2020-10-12] MEDS: ZINC SULFATE 220mg CAP or TAB PO SCH (10:24)
[2020-10-12] MEDS: FAMOTIDINE 20 MG TAB PO SCH ×2 (10:24→22:04)
[2020-10-12] MEDS: ENOXAPARIN SOD 40 MG/0.4 ML SYRINGE SC SCH (10:25)
[2020-10-12] MEDS: LINEZOLID 600MG/300ML 300 ML IV SCH ×2 (10:35→22:04)
[2020-10-12] MEDS: PROPOFOL 100 ML IV SCH (17:30)
[2020-10-12] MEDS: fentaNYL Drip 2500mCg/250mlNS 250 ML IV SCH (17:49)
[2020-10-12] MEDS: NOREPINEPHRINE 8 MG/250ML KIT 250 ML IV SCH (18:00)
[2020-10-13] VITALS (97 sets, daily range): BP systolic 89–152; BP diastolic 46–85
[2020-10-13] MEDS: FREE WATER NG SCH ×4 (00:34→17:48)
[2020-10-13] MEDS: InsuLIN REG 1unit/0.01ml Soln (100units/ml) SC SCH ×4 (00:36→18:00)
[2020-10-13] MEDS: ACCU-CHEK COMFORT CURVE STRIP VI SCH ×4 (00:36→18:26)
[2020-10-13] MEDS ORDERED: VALS80TA44 PO (01:46)
[2020-10-13] MEDS ORDERED: DONETAB6 PO (01:46)
[2020-10-13] MEDS ORDERED: DIVA250T12 PO (01:46)
[2020-10-13] MEDS ORDERED: ALOG2.5T PO (01:46)
[2020-10-13] MEDS ORDERED: CLO01T GT (01:46)
[2020-10-13] MEDS ORDERED: ESCI-28 PO (01:46)
[2020-10-13] MEDS ORDERED: ATOR20TA50 PO (01:46)
[2020-10-13] MEDS ORDERED: QUET200T45 PO (01:46)
[2020-10-13] MEDS: MIDAZOLAM DRIP 50 mg/50mL 50 ML IV SCH ×2 (04:28→20:04)
[2020-10-13] MEDS: INSULIN LANTUS (GLARGINE) 1 /0.01ml (100units/ml) SC SCH (06:35)
[2020-10-13] MEDS: levoFLOXacin 500MG 100 ML IV SCH (08:07)
[2020-10-13] MEDS: DexAMETHasone SOD PHOS 10MG/1ML VIAL INJ IV SCH (08:07)
[2020-10-13] MEDS: ZINC SULFATE 220mg CAP or TAB PO SCH (08:08)
[2020-10-13] MEDS: MULTIPLE VITAMIN TAB PO SCH (08:09)
[2020-10-13] MEDS: FAMOTIDINE 20 MG TAB PO SCH ×2 (08:10→21:57)
[2020-10-13] MEDS: ENOXAPARIN SOD 40 MG/0.4 ML SYRINGE SC SCH (08:10)
[2020-10-13 09:13] LABS: Basophils # (auto) 0 10 ^3/uL (0-0.2); Basophils % (auto) 0.1 % (0.0-2.0); Eosinophils # (auto) 0 10 ^3/uL (0-0.8); Eosinophils % (auto) 0.1 % (0.0-7.0); Hematocrit 34.5 % (41.0-53.0); Hemoglobin 11.4 g/dL (13.5-17.5); Lymphocytes # (auto) 0.5 10 ^3/uL (0.4-5.4); Lymphocytes % (auto) 3.5 % (10.0-50.0); Mean Corpuscular Hemoglobin 28.5 pg (28.0-32.0); Mean Corpuscular Hgb Conc. 33.1 g/dL (32.0-36.0); Monocytes # (auto) 0.7 10 ^3/uL (0-1.3); Monocytes % (auto) 4.5 % (0.0-12.0); Neutrophils # (auto) 14.2 10 ^3/uL (1.6-8.6); Neutrophils % (auto) 91.8 % (37.0-80.0); Red Blood Cells 4.01 10^6/uL (4.5-5.90); Red Cell Distribution Width 14.6 % (11.8-14.3); White Blood Cell 15.5 10^3/uL (4.4-10.8)
[2020-10-13 09:22] LABS: BUN/Creatinine Ratio 39.4; Calcium 7.6 mg/dL (8.5-10.1); Potassium 4.5 mmol/L (3.5-5.1)
[2020-10-13] MEDS: LINEZOLID 600MG/300ML 300 ML IV SCH ×2 (10:00→21:57)
[2020-10-13] MEDS: PROPOFOL 100 ML IV SCH (17:30)
[2020-10-13] MEDS: NOREPINEPHRINE 8 MG/250ML KIT 250 ML IV SCH (17:30)
[2020-10-13] MEDS: fentaNYL Drip 2500mCg/250mlNS 250 ML IV SCH (17:30)
[2020-10-14] VITALS (90 sets, daily range): BP systolic 40–174; BP diastolic 17–114
[2020-10-14] MEDS: FREE WATER NG SCH ×5 (00:25→23:56)
[2020-10-14] MEDS: ACCU-CHEK COMFORT CURVE STRIP VI SCH ×4 (00:25→17:57)
[2020-10-14] MEDS: InsuLIN REG 1unit/0.01ml Soln (100units/ml) SC SCH ×4 (00:27→17:57)
[2020-10-14] MEDS: fentaNYL Drip 2500mCg/250mlNS 250 ML IV SCH ×2 (03:37→22:35)
[2020-10-14 03:46] LABS: Basophils # (auto) 0 10 ^3/uL (0-0.2); Basophils % (auto) 0.2 % (0.0-2.0); Eosinophils # (auto) 0 10 ^3/uL (0-0.8); Eosinophils % (auto) 0.4 % (0.0-7.0); Hematocrit 33.9 % (41.0-53.0); Lymphocytes # (auto) 0.7 10 ^3/uL (0.4-5.4); Mean Corpuscular Hemoglobin 28.2 pg (28.0-32.0); Mean Corpuscular Hgb Conc. 32.5 g/dL (32.0-36.0); Mean Corpuscular Volume 86.6 fL (80.0-100.0); Monocytes # (auto) 0.8 10 ^3/uL (0-1.3); Monocytes % (auto) 6.8 % (0.0-12.0); Neutrophils # (auto) 10.1 10 ^3/uL (1.6-8.6); Neutrophils % (auto) 86.6 % (37.0-80.0); Red Blood Cells 3.91 10^6/uL (4.5-5.90); Red Cell Distribution Width 14.7 % (11.8-14.3); White Blood Cell 11.6 10^3/uL (4.4-10.8)
[2020-10-14 04:07] LABS: BUN/Creatinine Ratio 43.9; Calcium 7.6 mg/dL (8.5-10.1); Potassium 4.2 mmol/L (3.5-5.1)
[2020-10-14] MEDS: INSULIN LANTUS (GLARGINE) 1 /0.01ml (100units/ml) SC SCH (05:37)
[2020-10-14] MEDS: DexAMETHasone SOD PHOS 10MG/1ML VIAL INJ IV SCH (08:44)
[2020-10-14] MEDS: levoFLOXacin 500MG 100 ML IV SCH (08:45)
[2020-10-14] MEDS: ZINC SULFATE 220mg CAP or TAB PO SCH (08:45)
[2020-10-14] MEDS: MULTIPLE VITAMIN TAB PO SCH (08:45)
[2020-10-14] MEDS: LINEZOLID 600MG/300ML 300 ML IV SCH ×2 (08:45)
[2020-10-14] MEDS: ENOXAPARIN SOD 40 MG/0.4 ML SYRINGE SC SCH (08:46)
[2020-10-14] MEDS: FAMOTIDINE 20 MG TAB PO SCH ×2 (08:46→22:00)
[2020-10-14] MEDS: PROPOFOL 100 ML IV SCH (14:22)
[2020-10-14] MEDS: NOREPINEPHRINE 8 MG/250ML KIT 250 ML IV SCH (17:21)
[2020-10-14] MEDS ORDERED: ETOMIDATE (2MG/ML) 20ML VIAL IV ONE (20:36)
[2020-10-14] MEDS ORDERED: SUCCINYLCHOLINE CHLORIDE 20 MG/ML 10ML VIAL IV ONE (20:36)
[2020-10-14] MEDS ORDERED: NOREPINEPHRINE 8 MG/250ML KIT 250 ML IV ONE (20:42)
[2020-10-14] MEDS ORDERED: PROPOFOL 100 ML IV ONE (21:27)
[2020-10-15] VITALS (92 sets, daily range): BP systolic 80–172; BP diastolic 44–83
[2020-10-15] MEDS: ACCU-CHEK COMFORT CURVE STRIP VI SCH ×4 (01:04→17:36)
[2020-10-15] MEDS: PROPOFOL 100 ML IV SCH ×2 (02:03→20:53)
[2020-10-15] MEDS: MIDAZOLAM DRIP 50 mg/50mL 50 ML IV SCH ×4 (02:04→20:53)
[2020-10-15] MEDS: FREE WATER NG SCH ×4 (06:00→22:50)
[2020-10-15] MEDS: InsuLIN REG 1unit/0.01ml Soln (100units/ml) SC SCH ×4 (06:17→17:36)
[2020-10-15] MEDS: INSULIN LANTUS (GLARGINE) 1 /0.01ml (100units/ml) SC SCH (06:18)
[2020-10-15 06:37] LABS: Hematocrit 37.8 % (41.0-53.0); Hemoglobin 12.8 g/dL (13.5-17.5); Mean Corpuscular Hemoglobin 29.3 pg (28.0-32.0); Mean Corpuscular Hgb Conc. 33.7 g/dL (32.0-36.0); Mean Corpuscular Volume 86.8 fL (80.0-100.0); Red Blood Cells 4.36 10^6/uL (4.5-5.90); Red Cell Distribution Width 15.2 % (11.8-14.3); White Blood Cell 25.5 10^3/uL (4.4-10.8)
[2020-10-15 06:45] LABS: BUN/Creatinine Ratio 31.2; Calcium 7.7 mg/dL (8.5-10.1); Potassium 5.3 mmol/L (3.5-5.1)
[2020-10-15 06:59] LABS: Basophils % (manual) 0 (0.0-2.0); Blast Cells 0; Eosinophils % (manual) 0 (0-7); Myelocytes % 0; Promyelocytes % 0; Reactive Lymphocytes 0
[2020-10-15] MEDS: NOREPINEPHRINE 8 MG/250ML KIT 250 ML IV SCH (07:18)
[2020-10-15 08:04] LABS: Band Neutrophils % (manual) 23; Lymphocytes % (manual) 2 (10.0-50.0); Metamyelocytes % 2; Monocytes % (manual) 2 (0-12)
[2020-10-15] MEDS: DexAMETHasone SOD PHOS 10MG/1ML VIAL INJ IV SCH (09:22)
[2020-10-15] MEDS: levoFLOXacin 500MG 100 ML IV SCH (09:22)
[2020-10-15] MEDS: LINEZOLID 600MG/300ML 300 ML IV SCH (09:22)
[2020-10-15] MEDS: FAMOTIDINE 20 MG TAB PO SCH ×2 (09:23→22:00)
[2020-10-15] MEDS: ENOXAPARIN SOD 40 MG/0.4 ML SYRINGE SC SCH (09:23)
[2020-10-15] MEDS: MULTIPLE VITAMIN TAB PO SCH (09:23)
[2020-10-15] MEDS: ZINC SULFATE 220mg CAP or TAB PO SCH (09:23)
[2020-10-15] MEDS ORDERED: DEXTROSE (50%) 50ML SYRG IV ONE (10:45)
[2020-10-15] MEDS ORDERED: SODIUM BICARBONATE 8.4% INJ 50ML SYRINGE IV ONE ×2 (10:45→11:15)
[2020-10-15] MEDS ORDERED: MEROPENEM 500MG IVPB 50 ML IV ONE (10:45)
[2020-10-15] MEDS ORDERED: InsuLIN REG 1unit/0.01ml Soln (100units/ml) IV ONE (10:45)
[2020-10-15] MEDS ORDERED: ALBUTEROL SULF 2.5 MG/0.5ML(0.5%) NEB SOLN NEB ONE (10:45)
[2020-10-15] MEDS ORDERED: SODIUM CHLORIDE 0.9% 1,000 ML IV SCH (11:15)
[2020-10-15] MEDS ORDERED: FUROSEMIDE 40 MG/4 ML VIAL IV ONE (11:15)
[2020-10-15] MEDS ORDERED: SODIUM CHLORIDE 0.9% 500 ML IV ONE (11:15)
[2020-10-15 14:26] LABS: Urine Amorphous Crystal FEW /hpf (None Seen); Urine Bacteria MOD /hpf (None Seen); Urine Blood 2+ /uL (Negative); Urine Budding Yeast LOADED /hpf (None Seen); Urine Hyaline Cast FEW /lpf (0 - 2); Urine Mucus FEW (None Seen); Urine Specific Gravity 1.014 (1.001-1.035); Urine WBC 35 /hpf (0 - 3)
[2020-10-15] MEDS ORDERED: CALCIUM GLUC 4.65meq/50ml D5AE 50 ML IV ONE (16:45)
[2020-10-15] MEDS ORDERED: SODIUM ZIRCONIUM CYCL 10 GM PAK PO ONE (16:45)
[2020-10-15] MEDS: MEROPENEM 1GM IVPB 100 ML IV SCH (21:07)
[2020-10-15] MEDS: SODIUM BICARBONATE 50ML VIAL 150 ML in D5W 5% 1,000 ML IV SCH (21:57)
[2020-10-15] MEDS: SODIUM ZIRCONIUM CYCL 10 GM PAK PO SCH (22:00)
[2020-10-16] VITALS (97 sets, daily range): BP systolic 53–158; BP diastolic 27–80
[2020-10-16] MEDS: ACCU-CHEK COMFORT CURVE STRIP VI SCH ×4 (00:04→18:22)
[2020-10-16] MEDS: InsuLIN REG 1unit/0.01ml Soln (100units/ml) SC SCH ×5 (00:05→23:31)
[2020-10-16] MEDS: LINEZOLID 600MG/300ML 300 ML IV SCH ×3 (00:06→22:06)
[2020-10-16 04:06] LABS: Potassium 5.5 mmol/L (3.5-5.1)
[2020-10-16 04:10] LABS: BUN/Creatinine Ratio 31.9; Calcium 7.9 mg/dL (8.5-10.1)
[2020-10-16] MEDS: MIDAZOLAM DRIP 50 mg/50mL 50 ML IV SCH (04:11)
[2020-10-16] MEDS: PROPOFOL 100 ML IV SCH (04:12)
[2020-10-16 04:28] LABS: Basophils # (auto) 0.1 10 ^3/uL (0-0.2); Basophils % (auto) 0.3 % (0.0-2.0); Eosinophils # (auto) 0 10 ^3/uL (0-0.8); Eosinophils % (auto) 0.2 % (0.0-7.0); Hematocrit 34.2 % (41.0-53.0); Hemoglobin 11.2 g/dL (13.5-17.5); Lymphocytes # (auto) 0.4 10 ^3/uL (0.4-5.4); Lymphocytes % (auto) 1.6 % (10.0-50.0); Mean Corpuscular Hemoglobin 28.8 pg (28.0-32.0); Mean Corpuscular Hgb Conc. 32.7 g/dL (32.0-36.0); Mean Corpuscular Volume 88.1 fL (80.0-100.0); Monocytes # (auto) 0.6 10 ^3/uL (0-1.3); Monocytes % (auto) 2.5 % (0.0-12.0); Neutrophils # (auto) 21.4 10 ^3/uL (1.6-8.6); Neutrophils % (auto) 95.4 % (37.0-80.0); Red Blood Cells 3.88 10^6/uL (4.5-5.90); Red Cell Distribution Width 15.4 % (11.8-14.3); White Blood Cell 22.4 10^3/uL (4.4-10.8)
[2020-10-16] MEDS: SODIUM BICARBONATE 50ML VIAL 150 ML in D5W 5% 1,000 ML IV SCH ×2 (06:15→17:45)
[2020-10-16] MEDS: FREE WATER NG SCH ×4 (07:03→23:31)
[2020-10-16] MEDS: SODIUM ZIRCONIUM CYCL 10 GM PAK PO SCH ×3 (07:03→22:06)
[2020-10-16] MEDS: INSULIN LANTUS (GLARGINE) 1 /0.01ml (100units/ml) SC SCH (07:09)
[2020-10-16] MEDS: MEROPENEM 1GM IVPB 100 ML IV SCH ×2 (07:16→18:53)
[2020-10-16] MEDS: ENOXAPARIN SOD 40 MG/0.4 ML SYRINGE SC SCH (10:00)
[2020-10-16] MEDS: MULTIPLE VITAMIN TAB PO SCH (10:00)
[2020-10-16] MEDS: ZINC SULFATE 220mg CAP or TAB PO SCH (10:00)
[2020-10-16] MEDS ORDERED: MEROPENEM 500MG IVPB 50 ML IV SCH (10:00)
[2020-10-16] MEDS: FAMOTIDINE 20 MG TAB PO SCH ×2 (10:00→22:06)
[2020-10-16 10:25] LABS: BUN/Creatinine Ratio 29.8; Calcium 7.9 mg/dL (8.5-10.1); Potassium 5.3 mmol/L (3.5-5.1)
[2020-10-16] MEDS: fentaNYL Drip 2500mCg/250mlNS 250 ML IV SCH (17:30)
[2020-10-16] MEDS: NOREPINEPHRINE 8 MG/250ML KIT 250 ML IV SCH (18:00)
[2020-10-17] VITALS (96 sets, daily range): BP systolic 57–145; BP diastolic 32–78
[2020-10-17] MEDS: SODIUM BICARBONATE 50ML VIAL 150 ML in D5W 5% 1,000 ML IV SCH ×2
[2020-10-17] MEDS: PROPOFOL 100 ML IV SCH
[2020-10-17] MEDS: MIDAZOLAM DRIP 50 mg/50mL 50 ML IV SCH
[2020-10-17] MEDS: ACCU-CHEK COMFORT CURVE STRIP VI SCH ×5 (00:20→23:25)
[2020-10-17] MEDS: Glucerna 1.2 Cal 1Liter BOTTLE GT SCH (00:23)
[2020-10-17] MEDS: SODIUM ZIRCONIUM CYCL 10 GM PAK PO SCH (06:00)
[2020-10-17] MEDS: InsuLIN REG 1unit/0.01ml Soln (100units/ml) SC SCH ×4 (06:00→23:25)
[2020-10-17] MEDS: FREE WATER NG SCH ×4 (06:28→23:26)
[2020-10-17] MEDS: INSULIN LANTUS (GLARGINE) 1 /0.01ml (100units/ml) SC SCH (06:37)
[2020-10-17] MEDS: MEROPENEM 1GM IVPB 100 ML IV SCH (06:38)
[2020-10-17 06:54] LABS: Basophils # (auto) 0 10 ^3/uL (0-0.2); Basophils % (auto) 0.3 % (0.0-2.0); Eosinophils # (auto) 0.1 10 ^3/uL (0-0.8); Eosinophils % (auto) 0.7 % (0.0-7.0); Hematocrit 29.6 % (41.0-53.0); Hemoglobin 9.9 g/dL (13.5-17.5); Lymphocytes # (auto) 0.5 10 ^3/uL (0.4-5.4); Lymphocytes % (auto) 3.4 % (10.0-50.0); Mean Corpuscular Hemoglobin 28.8 pg (28.0-32.0); Mean Corpuscular Hgb Conc. 33.6 g/dL (32.0-36.0); Mean Corpuscular Volume 85.6 fL (80.0-100.0); Monocytes # (auto) 0.4 10 ^3/uL (0-1.3); Monocytes % (auto) 2.6 % (0.0-12.0); Nucleated Red Blood Cells % 0.1 %; Red Blood Cells 3.46 10^6/uL (4.5-5.90); Red Cell Distribution Width 15.2 % (11.8-14.3)
[2020-10-17 07:12] LABS: BUN/Creatinine Ratio 32.2; Calcium 7.9 mg/dL (8.5-10.1); Potassium 4.4 mmol/L (3.5-5.1)
[2020-10-17] MEDS: SODIUM CHLORIDE 0.9% 1,000 ML IV SCH ×2 (09:15→23:25)
[2020-10-17] MEDS: MULTIPLE VITAMIN TAB PO SCH (10:30)
[2020-10-17] MEDS: LINEZOLID 600MG/300ML 300 ML IV SCH ×2 (10:30→23:25)
[2020-10-17] MEDS: ZINC SULFATE 220mg CAP or TAB PO SCH (10:30)
[2020-10-17] MEDS: ENOXAPARIN SOD 40 MG/0.4 ML SYRINGE SC SCH (10:31)
[2020-10-17] MEDS: FAMOTIDINE 20 MG TAB PO SCH ×2 (10:31→23:25)
[2020-10-17] MEDS: METOCLOPRAMIDE HCL 5MG/ml INJ 2ml VIAL IV SCH ×2 (14:00→23:26)
[2020-10-17] MEDS: NOREPINEPHRINE 8 MG/250ML KIT 250 ML IV SCH (17:30)
[2020-10-17] MEDS: fentaNYL Drip 2500mCg/250mlNS 250 ML IV SCH (17:30)
[2020-10-18] VITALS (86 sets, daily range): BP systolic 88–170; BP diastolic 44–144
[2020-10-18] MEDS: InsuLIN REG 1unit/0.01ml Soln (100units/ml) SC SCH ×4 (00:59→18:00)
[2020-10-18 03:51] LABS: Basophils # (auto) 0 10 ^3/uL (0-0.2); Basophils % (auto) 0.3 % (0.0-2.0); Eosinophils # (auto) 0 10 ^3/uL (0-0.8); Eosinophils % (auto) 0.3 % (0.0-7.0); Hematocrit 27.8 % (41.0-53.0); Hemoglobin 9.3 g/dL (13.5-17.5); Lymphocytes # (auto) 0.2 10 ^3/uL (0.4-5.4); Mean Corpuscular Hemoglobin 28.5 pg (28.0-32.0); Mean Corpuscular Hgb Conc. 33.4 g/dL (32.0-36.0); Mean Corpuscular Volume 85.2 fL (80.0-100.0); Monocytes # (auto) 0.3 10 ^3/uL (0-1.3); Monocytes % (auto) 2.3 % (0.0-12.0); Neutrophils # (auto) 11.3 10 ^3/uL (1.6-8.6); Neutrophils % (auto) 95.1 % (37.0-80.0); Nucleated Red Blood Cells % 0.1 %; Red Blood Cells 3.26 10^6/uL (4.5-5.90); Red Cell Distribution Width 15.3 % (11.8-14.3); White Blood Cell 11.9 10^3/uL (4.4-10.8)
[2020-10-18 03:58] LABS: BUN/Creatinine Ratio 35.8; Calcium 7.8 mg/dL (8.5-10.1); Potassium 3.7 mmol/L (3.5-5.1)
[2020-10-18] MEDS: FREE WATER NG SCH ×4 (06:00→23:58)
[2020-10-18] MEDS: METOCLOPRAMIDE HCL 5MG/ml INJ 2ml VIAL IV SCH ×4 (06:00→23:54)
[2020-10-18] MEDS: ACCU-CHEK COMFORT CURVE STRIP VI SCH ×4 (06:01→18:10)
[2020-10-18] MEDS: DEXTROSE (50%) 50ML SYRG IV PRN (06:06)
[2020-10-18] MEDS: INSULIN LANTUS (GLARGINE) 1 /0.01ml (100units/ml) SC SCH (06:54)
[2020-10-18] MEDS: FAMOTIDINE 20 MG TAB PO SCH ×2 (09:57→23:55)
[2020-10-18] MEDS: MULTIPLE VITAMIN TAB PO SCH (09:57)
[2020-10-18] MEDS: ZINC SULFATE 220mg CAP or TAB PO SCH (09:57)
[2020-10-18] MEDS: LINEZOLID 600MG/300ML 300 ML IV SCH ×2 (09:57→23:55)
[2020-10-18] MEDS: ENOXAPARIN SOD 40 MG/0.4 ML SYRINGE SC SCH (09:57)
[2020-10-18] MEDS ORDERED: MEROPENEM 500MG IVPB 50 ML IV ONE (10:45)
[2020-10-18] MEDS: SODIUM CHLORIDE 0.9% 1,000 ML IV SCH (11:23)
[2020-10-18] MEDS: fentaNYL Drip 2500mCg/250mlNS 250 ML IV SCH (18:09)
[2020-10-18] MEDS: PROPOFOL 100 ML IV SCH (18:09)
[2020-10-18] MEDS: MIDAZOLAM DRIP 50 mg/50mL 50 ML IV SCH (18:10)
[2020-10-18] MEDS: NOREPINEPHRINE 8 MG/250ML KIT 250 ML IV SCH (18:10)
[2020-10-19] VITALS (76 sets, daily range): BP systolic 73–152; BP diastolic 39–72
[2020-10-19] MEDS: ACCU-CHEK COMFORT CURVE STRIP VI SCH ×4 (01:10→17:34)
[2020-10-19] MEDS: InsuLIN REG 1unit/0.01ml Soln (100units/ml) SC SCH ×4 (01:15→17:36)
[2020-10-19 03:31] LABS: Basophils # (auto) 0 10 ^3/uL (0-0.2); Basophils % (auto) 0.6 % (0.0-2.0); Eosinophils # (auto) 0.1 10 ^3/uL (0-0.8); Eosinophils % (auto) 1.3 % (0.0-7.0); Hemoglobin 8.7 g/dL (13.5-17.5); Lymphocytes # (auto) 0.3 10 ^3/uL (0.4-5.4); Lymphocytes % (auto) 3.9 % (10.0-50.0); Mean Corpuscular Hgb Conc. 33.6 g/dL (32.0-36.0); Mean Corpuscular Volume 86.3 fL (80.0-100.0); Monocytes # (auto) 0.3 10 ^3/uL (0-1.3); Monocytes % (auto) 3.8 % (0.0-12.0); Neutrophils # (auto) 6.5 10 ^3/uL (1.6-8.6); Neutrophils % (auto) 90.4 % (37.0-80.0); Nucleated Red Blood Cells % 0.1 %; Red Blood Cells 3.01 10^6/uL (4.5-5.90); Red Cell Distribution Width 15.5 % (11.8-14.3); White Blood Cell 7.2 10^3/uL (4.4-10.8)
[2020-10-19 03:50] LABS: BUN/Creatinine Ratio 38.2; Calcium 7.5 mg/dL (8.5-10.1); Potassium 4.1 mmol/L (3.5-5.1)
[2020-10-19 05:19] LABS: Albumin 1.1 g/dL (3.4-5.0)
[2020-10-19] MEDS: FREE WATER NG SCH (06:00)
[2020-10-19] MEDS: METOCLOPRAMIDE HCL 5MG/ml INJ 2ml VIAL IV SCH ×3 (06:00→22:00)
[2020-10-19] MEDS: INSULIN LANTUS (GLARGINE) 1 /0.01ml (100units/ml) SC SCH (07:00)
[2020-10-19] MEDS: MEROPENEM 500MG IVPB 50 ML IV SCH (09:49)
[2020-10-19] MEDS: MULTIPLE VITAMIN TAB PO SCH (10:21)
[2020-10-19] MEDS: FAMOTIDINE 20 MG TAB PO SCH ×2 (10:21→22:00)
[2020-10-19] MEDS: ZINC SULFATE 220mg CAP or TAB PO SCH (10:21)
[2020-10-19] MEDS: LINEZOLID 600MG/300ML 300 ML IV SCH ×2 (12:00→22:00)
[2020-10-19] MEDS: fentaNYL Drip 2500mCg/250mlNS 250 ML IV SCH (14:52)
[2020-10-19] MEDS: MIDAZOLAM DRIP 50 mg/50mL 50 ML IV SCH ×2 (15:30→23:24)
[2020-10-19] MEDS: NOREPINEPHRINE 8 MG/250ML KIT 250 ML IV SCH (17:30)
[2020-10-19] MEDS: PROPOFOL 100 ML IV SCH (17:30)
[2020-10-20] VITALS (100 sets, daily range): BP systolic 82–132; BP diastolic 42–79
[2020-10-20 04:24] LABS: Basophils # (auto) 0 10 ^3/uL (0-0.2); Basophils % (auto) 0.3 % (0.0-2.0); Eosinophils # (auto) 0.1 10 ^3/uL (0-0.8); Eosinophils % (auto) 1.3 % (0.0-7.0); Hematocrit 26.5 % (41.0-53.0); Hemoglobin 8.9 g/dL (13.5-17.5); Lymphocytes # (auto) 0.3 10 ^3/uL (0.4-5.4); Mean Corpuscular Hgb Conc. 33.7 g/dL (32.0-36.0); Mean Corpuscular Volume 86.2 fL (80.0-100.0); Monocytes # (auto) 0.3 10 ^3/uL (0-1.3); Monocytes % (auto) 6.2 % (0.0-12.0); Neutrophils # (auto) 4.5 10 ^3/uL (1.6-8.6); Neutrophils % (auto) 86.2 % (37.0-80.0); Nucleated Red Blood Cells % 0.1 %; Red Blood Cells 3.07 10^6/uL (4.5-5.90); Red Cell Distribution Width 15.6 % (11.8-14.3); White Blood Cell 5.2 10^3/uL (4.4-10.8)
[2020-10-20 05:00] LABS: Potassium 4.1 mmol/L (3.5-5.1)
[2020-10-20 05:05] LABS: BUN/Creatinine Ratio 37.7; Calcium 7.3 mg/dL (8.5-10.1)
[2020-10-20] MEDS: METOCLOPRAMIDE HCL 5MG/ml INJ 2ml VIAL IV SCH ×3 (06:00→22:00)
[2020-10-20] MEDS: ACCU-CHEK COMFORT CURVE STRIP VI SCH ×4 (06:00→18:00)
[2020-10-20] MEDS: InsuLIN REG 1unit/0.01ml Soln (100units/ml) SC SCH ×4 (06:57→18:00)
[2020-10-20] MEDS: INSULIN LANTUS (GLARGINE) 1 /0.01ml (100units/ml) SC SCH (07:50)
[2020-10-20] MEDS: MEROPENEM 500MG IVPB 50 ML IV SCH (09:13)
[2020-10-20] MEDS: MULTIPLE VITAMIN TAB PO SCH (10:30)
[2020-10-20] MEDS: ZINC SULFATE 220mg CAP or TAB PO SCH (10:30)
[2020-10-20] MEDS: FAMOTIDINE 20 MG TAB PO SCH ×2 (10:30→22:00)
[2020-10-20] MEDS: MIDAZOLAM DRIP 50 mg/50mL 50 ML IV SCH (11:00)
[2020-10-20] MEDS: LINEZOLID 600MG/300ML 300 ML IV SCH ×2 (11:07→22:00)
[2020-10-20] MEDS: fentaNYL Drip 2500mCg/250mlNS 250 ML IV SCH (12:55)
[2020-10-20 16:23] LABS: INR 0.97 (0.9-1.15)
[2020-10-20] MEDS: NOREPINEPHRINE 8 MG/250ML KIT 250 ML IV SCH (17:17)
[2020-10-20] MEDS: PROPOFOL 100 ML IV SCH (17:17)
[2020-10-21] VITALS (90 sets, daily range): BP systolic 89–135; BP diastolic 52–76
[2020-10-21 05:18] LABS: Calcium 7.3 mg/dL (8.5-10.1); Potassium 4.6 mmol/L (3.5-5.1)
[2020-10-21 05:21] LABS: BUN/Creatinine Ratio 44.8
[2020-10-21] MEDS: InsuLIN REG 1unit/0.01ml Soln (100units/ml) SC SCH ×5 (06:00→23:40)
[2020-10-21] MEDS: ACCU-CHEK COMFORT CURVE STRIP VI SCH ×5 (06:00→23:40)
[2020-10-21] MEDS: METOCLOPRAMIDE HCL 5MG/ml INJ 2ml VIAL IV SCH ×3 (06:00→22:25)
[2020-10-21] MEDS: INSULIN LANTUS (GLARGINE) 1 /0.01ml (100units/ml) SC SCH (07:00)
[2020-10-21] MEDS ORDERED: CATHFLO ACTIVASE (ALTEPLASE) 2 MG VIAL IV ONE (08:30)
[2020-10-21] MEDS: MULTIPLE VITAMIN TAB PO SCH (09:25)
[2020-10-21] MEDS: MEROPENEM 500MG IVPB 50 ML IV SCH (09:25)
[2020-10-21] MEDS: FAMOTIDINE 20 MG TAB PO SCH ×2 (09:26→22:25)
[2020-10-21] MEDS: ZINC SULFATE 220mg CAP or TAB PO SCH (09:48)
[2020-10-21] MEDS: LINEZOLID 600MG/300ML 300 ML IV SCH ×2 (11:27→22:25)
[2020-10-21] MEDS: fentaNYL Drip 2500mCg/250mlNS 250 ML IV SCH (17:30)
[2020-10-21] MEDS: NOREPINEPHRINE 8 MG/250ML KIT 250 ML IV SCH (17:30)
[2020-10-21] MEDS: MIDAZOLAM DRIP 50 mg/50mL 50 ML IV SCH (17:30)
[2020-10-21] MEDS: PROPOFOL 100 ML IV SCH (17:30)
[2020-10-22] VITALS (85 sets, daily range): BP systolic 82–139; BP diastolic 48–87
[2020-10-22] MEDS: fentaNYL Drip 2500mCg/250mlNS 250 ML IV SCH (00:03)
[2020-10-22] MEDS: MIDAZOLAM DRIP 50 mg/50mL 50 ML IV SCH ×2 (02:04→22:15)
[2020-10-22 03:36] LABS: Basophils # (auto) 0 10 ^3/uL (0-0.2); Basophils % (auto) 0.8 % (0.0-2.0); Eosinophils # (auto) 0.1 10 ^3/uL (0-0.8); Hematocrit 26.9 % (41.0-53.0); Lymphocytes # (auto) 0.5 10 ^3/uL (0.4-5.4); Lymphocytes % (auto) 17.4 % (10.0-50.0); Mean Corpuscular Hemoglobin 29.3 pg (28.0-32.0); Mean Corpuscular Hgb Conc. 33.4 g/dL (32.0-36.0); Mean Corpuscular Volume 87.8 fL (80.0-100.0); Monocytes # (auto) 0.2 10 ^3/uL (0-1.3); Monocytes % (auto) 7.9 % (0.0-12.0); Neutrophils # (auto) 1.8 10 ^3/uL (1.6-8.6); Neutrophils % (auto) 69.9 % (37.0-80.0); Nucleated Red Blood Cells % 0.1 %; Red Blood Cells 3.07 10^6/uL (4.5-5.90); Red Cell Distribution Width 15.2 % (11.8-14.3); White Blood Cell 2.6 10^3/uL (4.4-10.8)
[2020-10-22] MEDS: InsuLIN REG 1unit/0.01ml Soln (100units/ml) SC SCH ×4 (06:00→23:30)
[2020-10-22] MEDS: ACCU-CHEK COMFORT CURVE STRIP VI SCH ×4 (06:37→23:30)
[2020-10-22] MEDS: METOCLOPRAMIDE HCL 5MG/ml INJ 2ml VIAL IV SCH ×3 (06:38→22:00)
[2020-10-22] MEDS: INSULIN LANTUS (GLARGINE) 1 /0.01ml (100units/ml) SC SCH (07:00)
[2020-10-22] MEDS ORDERED: ROCURONIUM 10MG/ML 10ML VIAL IV ONE (08:56)
[2020-10-22] MEDS ORDERED: fentaNYL CITRATE 100 MCG/2 ML VL ONE (08:56)
[2020-10-22] MEDS ORDERED: MIDAZOLAM HCL 2MG/2ML 2ml VIAL (1mg/ml) ONE (08:56)
[2020-10-22] MEDS: FAMOTIDINE 20 MG TAB PO SCH ×2 (09:57→22:00)
[2020-10-22] MEDS: ZINC SULFATE 220mg CAP or TAB PO SCH (09:57)
[2020-10-22] MEDS: MULTIPLE VITAMIN TAB PO SCH (09:57)
[2020-10-22] MEDS: MEROPENEM 500MG IVPB 50 ML IV SCH (11:00)
[2020-10-22] MEDS: NOREPINEPHRINE 8 MG/250ML KIT 250 ML IV SCH (12:15)
[2020-10-22 14:13] LABS: INR 1.07 (0.9-1.15); Partial Thromboplastin Time 34.5 sec (23.0-31.2)
[2020-10-22 14:49] LABS: BUN/Creatinine Ratio 40.9; Calcium 7.1 mg/dL (8.5-10.1); Potassium 4.1 mmol/L (3.5-5.1)
[2020-10-22] MEDS: PROPOFOL 100 ML IV SCH (17:30)
[2020-10-23] VITALS (99 sets, daily range): BP systolic 89–178; BP diastolic 49–83
[2020-10-23] MEDS: fentaNYL Drip 2500mCg/250mlNS 250 ML IV SCH ×2 (00:59→18:12)
[2020-10-23 03:38] LABS: Basophils # (auto) 0 10 ^3/uL (0-0.2); Basophils % (auto) 0.6 % (0.0-2.0); Eosinophils # (auto) 0.1 10 ^3/uL (0-0.8); Eosinophils % (auto) 3.2 % (0.0-7.0); Hematocrit 26.2 % (41.0-53.0); Hemoglobin 8.5 g/dL (13.5-17.5); Lymphocytes # (auto) 0.4 10 ^3/uL (0.4-5.4); Lymphocytes % (auto) 14.8 % (10.0-50.0); Mean Corpuscular Hemoglobin 29.1 pg (28.0-32.0); Mean Corpuscular Hgb Conc. 32.5 g/dL (32.0-36.0); Mean Corpuscular Volume 89.5 fL (80.0-100.0); Monocytes # (auto) 0.3 10 ^3/uL (0-1.3); Monocytes % (auto) 9.2 % (0.0-12.0); Neutrophils # (auto) 2.1 10 ^3/uL (1.6-8.6); Neutrophils % (auto) 72.2 % (37.0-80.0); Nucleated Red Blood Cells % 0.2 %; Red Blood Cells 2.93 10^6/uL (4.5-5.90); White Blood Cell 2.9 10^3/uL (4.4-10.8)
[2020-10-23 03:56] LABS: Calcium 6.9 mg/dL (8.5-10.1); Potassium 4.4 mmol/L (3.5-5.1)
[2020-10-23 03:58] LABS: BUN/Creatinine Ratio 42.9
[2020-10-23] MEDS: METOCLOPRAMIDE HCL 5MG/ml INJ 2ml VIAL IV SCH ×3 (06:00→21:45)
[2020-10-23] MEDS: InsuLIN REG 1unit/0.01ml Soln (100units/ml) SC SCH ×3 (06:00→17:48)
[2020-10-23] MEDS: ACCU-CHEK COMFORT CURVE STRIP VI SCH ×3 (06:04→17:47)
[2020-10-23] MEDS: INSULIN LANTUS (GLARGINE) 1 /0.01ml (100units/ml) SC SCH (07:00)
[2020-10-23] MEDS ORDERED: SODIUM CHLORIDE LOCK 10 ML ONE (08:14)
[2020-10-23] MEDS ORDERED: LIDOCAINE VISCOUS 2% 15ML UD ONE (08:14)
[2020-10-23] MEDS ORDERED: MIDAZOLAM HCL 5 MG/ML-1ML VIAL ONE (08:14)
[2020-10-23] MEDS ORDERED: diphenhdrAMINE HCL 50 MG/1 ML VL ONE (08:14)
[2020-10-23] MEDS ORDERED: fentaNYL CITRATE 100 MCG/2 ML VL ONE (08:15)
[2020-10-23] MEDS: MIDAZOLAM DRIP 50 mg/50mL 50 ML IV SCH (08:55)
[2020-10-23] MEDS: MEROPENEM 500MG IVPB 50 ML IV SCH (09:45)
[2020-10-23] MEDS: ZINC SULFATE 220mg CAP or TAB PO SCH (10:00)
[2020-10-23] MEDS: MULTIPLE VITAMIN TAB PO SCH (10:00)
[2020-10-23] MEDS: hydrALAZINE HCL 20 MG/ML VL IV PRN (14:14)
[2020-10-23] MEDS: PROPOFOL 100 ML IV SCH (17:30)
[2020-10-23] MEDS: NOREPINEPHRINE 8 MG/250ML KIT 250 ML IV SCH (17:30)
[2020-10-23] MEDS: PANTOPRAZOLE 40 MG/10 ML VIAL INJ IV SCH (21:45)
[2020-10-24] VITALS (69 sets, daily range): BP systolic 79–145; BP diastolic 44–78
[2020-10-24] MEDS: ACCU-CHEK COMFORT CURVE STRIP VI SCH ×5 (00:24→23:24)
[2020-10-24] MEDS: InsuLIN REG 1unit/0.01ml Soln (100units/ml) SC SCH ×5 (06:00→23:24)
[2020-10-24 06:05] LABS: White Blood Cell 2.8 10^3/uL (4.4-10.8)
[2020-10-24 06:08] LABS: Hematocrit 21.8 % (41.0-53.0); Hemoglobin 7.6 g/dL (13.5-17.5); Mean Corpuscular Hemoglobin 29.8 pg (28.0-32.0); Mean Corpuscular Hgb Conc. 34.7 g/dL (32.0-36.0); Mean Corpuscular Volume 85.7 fL (80.0-100.0); Red Blood Cells 2.54 10^6/uL (4.5-5.90); Red Cell Distribution Width 14.4 % (11.8-14.3)
[2020-10-24 06:10] LABS: Potassium 3.8 mmol/L (3.5-5.1)
[2020-10-24 06:18] LABS: BUN/Creatinine Ratio 59.5
[2020-10-24 06:34] LABS: Basophils % (manual) 0 (0.0-2.0); Blast Cells 0; Metamyelocytes % 0; Promyelocytes % 0; Reactive Lymphocytes 0
[2020-10-24] MEDS: METOCLOPRAMIDE HCL 5MG/ml INJ 2ml VIAL IV SCH ×2 (06:34→14:30)
[2020-10-24] MEDS: INSULIN LANTUS (GLARGINE) 1 /0.01ml (100units/ml) SC SCH (06:34)
[2020-10-24] MEDS: fentaNYL Drip 2500mCg/250mlNS 250 ML IV SCH ×2 (08:31→23:22)
[2020-10-24] MEDS: MIDAZOLAM DRIP 50 mg/50mL 50 ML IV SCH (10:30)
[2020-10-24] MEDS: PANTOPRAZOLE 40 MG/10 ML VIAL INJ IV SCH ×2 (10:59→23:23)
[2020-10-24] MEDS: MEROPENEM 500MG IVPB 50 ML IV SCH (10:59)
[2020-10-24] MEDS: MULTIPLE VITAMIN TAB PO SCH (11:00)
[2020-10-24] MEDS: ZINC SULFATE 220mg CAP or TAB PO SCH (11:00)
[2020-10-24 14:56] LABS: Band Neutrophils % (manual) 6; Eosinophils % (manual) 9 (0-7); Lymphocytes % (manual) 16 (10.0-50.0); Monocytes % (manual) 8 (0-12); Myelocytes % 1
[2020-10-24] MEDS ORDERED: SODIUM FERR GLUC 62.5MG/5ML 125 MG in SODIUM CHL 0.9% 100 ML IV ONE (15:30)
[2020-10-24] MEDS ORDERED: Glucerna 1.2 Cal 1Liter BOTTLE GT SCH (15:30)
[2020-10-24] MEDS ORDERED: DOXYCYCLINE 100 MG TAB/CAP PEG ONE (15:45)
[2020-10-24] MEDS: NOREPINEPHRINE 8 MG/250ML KIT 250 ML IV SCH (17:30)
[2020-10-24] MEDS: PROPOFOL 100 ML IV SCH (17:30)
[2020-10-24] MEDS: MUPIROCIN 2% OINT 15gm or 22gm EACHNOSTRI SCH (23:22)
[2020-10-24] MEDS: DOXYCYCLINE 100 MG TAB/CAP PEG SCH (23:23)
[2020-10-25] VITALS (35 sets, daily range): BP systolic 102–148; BP diastolic 56–86
[2020-10-25] MEDS: MIDAZOLAM DRIP 50 mg/50mL 50 ML IV SCH (00:57)
[2020-10-25] MEDS: InsuLIN REG 1unit/0.01ml Soln (100units/ml) SC SCH ×3 (06:00→18:17)
[2020-10-25] MEDS: ACCU-CHEK COMFORT CURVE STRIP VI SCH ×3 (06:00→18:15)
[2020-10-25] MEDS: INSULIN LANTUS (GLARGINE) 1 /0.01ml (100units/ml) SC SCH (07:00)
[2020-10-25] MEDS: ZINC SULFATE 220mg CAP or TAB PO SCH (11:00)
[2020-10-25] MEDS: MUPIROCIN 2% OINT 15gm or 22gm EACHNOSTRI SCH ×2 (11:00→22:00)
[2020-10-25] MEDS: DOXYCYCLINE 100 MG TAB/CAP PEG SCH ×2 (11:00→22:00)
[2020-10-25] MEDS: MULTIPLE VITAMIN TAB PO SCH (11:00)
[2020-10-25] MEDS ORDERED: FUROSEMIDE 40 MG/4 ML VIAL IV ONE (12:30)
[2020-10-25 12:31] LABS: Basophils # (auto) 0 10 ^3/uL (0-0.2); Eosinophils # (auto) 0.2 10 ^3/uL (0-0.8); Lymphocytes # (auto) 0.4 10 ^3/uL (0.4-5.4); Monocytes # (auto) 0.3 10 ^3/uL (0-1.3); Red Cell Distribution Width 14.6 % (11.8-14.3); White Blood Cell 3.6 10^3/uL (4.4-10.8)
[2020-10-25 12:34] LABS: Basophils % (auto) 0.3 % (0.0-2.0); Hematocrit 21.8 % (41.0-53.0); Hemoglobin 7.5 g/dL (13.5-17.5); Lymphocytes % (auto) 10.7 % (10.0-50.0); Mean Corpuscular Hemoglobin 29.6 pg (28.0-32.0); Mean Corpuscular Hgb Conc. 34.3 g/dL (32.0-36.0); Mean Corpuscular Volume 86.3 fL (80.0-100.0); Monocytes % (auto) 8.6 % (0.0-12.0); Neutrophils # (auto) 2.6 10 ^3/uL (1.6-8.6); Neutrophils % (auto) 74.4 % (37.0-80.0); Nucleated Red Blood Cells % 0.2 %; Red Blood Cells 2.53 10^6/uL (4.5-5.90)
[2020-10-25] MEDS: MEROPENEM 500MG IVPB 50 ML IV SCH (12:35)
[2020-10-25] MEDS: PANTOPRAZOLE 40 MG/10 ML VIAL INJ IV SCH ×2 (12:35→22:00)
[2020-10-25 13:08] LABS: BUN/Creatinine Ratio 41.7; Calcium 6.9 mg/dL (8.5-10.1); Potassium 3.7 mmol/L (3.5-5.1)
[2020-10-25] MEDS: SODIUM FERR GLUC 62.5MG/5ML 125 MG in SODIUM CHL 0.9% 100 ML IV SCH (13:39)
[2020-10-25] MEDS ORDERED: POTASSIUM EFFERVESENT TAB 25 MEQ GT ONE (15:15)
[2020-10-25] MEDS: PROPOFOL 100 ML IV SCH (17:30)
[2020-10-25] MEDS: NOREPINEPHRINE 8 MG/250ML KIT 250 ML IV SCH (17:30)
[2020-10-26] VITALS (28 sets, daily range): BP systolic 129–162; BP diastolic 72–86
[2020-10-26] MEDS: ACCU-CHEK COMFORT CURVE STRIP VI SCH ×4 (00:40→18:21)
[2020-10-26 04:49] LABS: Basophils # (auto) 0 10 ^3/uL (0-0.2); Basophils % (auto) 0.3 % (0.0-2.0); Eosinophils # (auto) 0.4 10 ^3/uL (0-0.8); Eosinophils % (auto) 8.5 % (0.0-7.0); Hemoglobin 8.4 g/dL (13.5-17.5); Lymphocytes # (auto) 0.5 10 ^3/uL (0.4-5.4)
[2020-10-26 04:51] LABS: Hematocrit 24.2 % (41.0-53.0); Lymphocytes % (auto) 11.5 % (10.0-50.0); Mean Corpuscular Hemoglobin 29.4 pg (28.0-32.0); Mean Corpuscular Hgb Conc. 34.5 g/dL (32.0-36.0); Mean Corpuscular Volume 85.1 fL (80.0-100.0); Monocytes # (auto) 0.3 10 ^3/uL (0-1.3); Neutrophils % (auto) 71.7 % (37.0-80.0); Red Blood Cells 2.84 10^6/uL (4.5-5.90); Red Cell Distribution Width 14.6 % (11.8-14.3); White Blood Cell 4.2 10^3/uL (4.4-10.8)
[2020-10-26 05:04] LABS: Albumin 1.5 g/dL (3.4-5.0); Calcium 7.2 mg/dL (8.5-10.1); Potassium 3.8 mmol/L (3.5-5.1)
[2020-10-26 05:10] LABS: BUN/Creatinine Ratio 31.6; Bilirubin, Total 0.4 mg/dL (0.2-1.0); Total Protein 5.3 g/dL (6.4-8.2)
[2020-10-26] MEDS: InsuLIN REG 1unit/0.01ml Soln (100units/ml) SC SCH ×4 (06:00→18:00)
[2020-10-26] MEDS: INSULIN LANTUS (GLARGINE) 1 /0.01ml (100units/ml) SC SCH (06:57)
[2020-10-26] MEDS: MULTIPLE VITAMIN TAB PO SCH (10:00)
[2020-10-26] MEDS: POTASSIUM EFFERVESENT TAB 25 MEQ GT SCH (10:00)
[2020-10-26] MEDS: MUPIROCIN 2% OINT 15gm or 22gm EACHNOSTRI SCH ×2 (10:00→23:09)
[2020-10-26] MEDS: PANTOPRAZOLE 40 MG/10 ML VIAL INJ IV SCH ×2 (10:00→23:10)
[2020-10-26] MEDS: DOXYCYCLINE 100 MG TAB/CAP PEG SCH ×2 (10:00→23:10)
[2020-10-26] MEDS: FUROSEMIDE 20 MG/2 ML VIAL IV SCH (10:00)
[2020-10-26] MEDS: MEROPENEM 500MG IVPB 50 ML IV SCH (10:00)
[2020-10-26] MEDS: SODIUM FERR GLUC 62.5MG/5ML 125 MG in SODIUM CHL 0.9% 100 ML IV SCH (12:00)
[2020-10-26] MEDS: PROPOFOL 100 ML IV SCH (17:12)
[2020-10-26] MEDS: NOREPINEPHRINE 8 MG/250ML KIT 250 ML IV SCH (17:12)
[2020-10-26] MEDS: MIDAZOLAM DRIP 50 mg/50mL 50 ML IV SCH (19:45)
[2020-10-26] MEDS: fentaNYL Drip 2500mCg/250mlNS 250 ML IV SCH (19:50)
[2020-10-27] VITALS (30 sets, daily range): BP systolic 113–165; BP diastolic 69–92
[2020-10-27] MEDS: InsuLIN REG 1unit/0.01ml Soln (100units/ml) SC SCH ×4 (06:00→18:20)
[2020-10-27] MEDS: ACCU-CHEK COMFORT CURVE STRIP VI SCH ×4 (06:00→18:15)
[2020-10-27] MEDS: INSULIN LANTUS (GLARGINE) 1 /0.01ml (100units/ml) SC SCH (07:00)
[2020-10-27 07:37] LABS: Basophils # (auto) 0 10 ^3/uL (0-0.2); Basophils % (auto) 0.4 % (0.0-2.0); Eosinophils # (auto) 0.4 10 ^3/uL (0-0.8); Eosinophils % (auto) 7.7 % (0.0-7.0); Hematocrit 24.9 % (41.0-53.0); Hemoglobin 8.6 g/dL (13.5-17.5); Lymphocytes # (auto) 0.6 10 ^3/uL (0.4-5.4); Lymphocytes % (auto) 12.8 % (10.0-50.0); Mean Corpuscular Hemoglobin 29.3 pg (28.0-32.0); Mean Corpuscular Hgb Conc. 34.3 g/dL (32.0-36.0); Mean Corpuscular Volume 85.5 fL (80.0-100.0); Monocytes # (auto) 0.3 10 ^3/uL (0-1.3); Monocytes % (auto) 5.2 % (0.0-12.0); Neutrophils # (auto) 3.6 10 ^3/uL (1.6-8.6); Neutrophils % (auto) 73.9 % (37.0-80.0); Nucleated Red Blood Cells % 0.1 %; Red Blood Cells 2.92 10^6/uL (4.5-5.90); Red Cell Distribution Width 14.8 % (11.8-14.3); White Blood Cell 4.8 10^3/uL (4.4-10.8)
[2020-10-27 07:50] LABS: BUN/Creatinine Ratio 29.3; Calcium 7.3 mg/dL (8.5-10.1); Potassium 4.2 mmol/L (3.5-5.1)
[2020-10-27] MEDS: POTASSIUM EFFERVESENT TAB 25 MEQ GT SCH (10:00)
[2020-10-27] MEDS: FUROSEMIDE 20 MG/2 ML VIAL IV SCH (10:03)
[2020-10-27] MEDS: PANTOPRAZOLE 40 MG/10 ML VIAL INJ IV SCH ×2 (10:03→21:11)
[2020-10-27] MEDS: MUPIROCIN 2% OINT 15gm or 22gm EACHNOSTRI SCH ×2 (10:03→21:10)
[2020-10-27] MEDS: MEROPENEM 500MG IVPB 50 ML IV SCH (10:03)
[2020-10-27] MEDS: MULTIPLE VITAMIN TAB PO SCH (10:03)
[2020-10-27] MEDS: DOXYCYCLINE 100 MG TAB/CAP PEG SCH ×2 (10:03→21:11)
[2020-10-27] MEDS: SODIUM FERR GLUC 62.5MG/5ML 125 MG in SODIUM CHL 0.9% 100 ML IV SCH (12:14)
[2020-10-27] MEDS: NOREPINEPHRINE 8 MG/250ML KIT 250 ML IV SCH (17:30)
[2020-10-27] MEDS: PROPOFOL 100 ML IV SCH (17:30)
[2020-10-27] MEDS: MIDAZOLAM DRIP 50 mg/50mL 50 ML IV SCH (19:45)
[2020-10-27] MEDS: fentaNYL Drip 2500mCg/250mlNS 250 ML IV SCH (20:00)
[2020-10-27] MEDS: LORazepam 2MG/ML-1ML VIAL IV PRN (21:11)
[2020-10-28] VITALS (24 sets, daily range): BP systolic 106–160; BP diastolic 60–91
[2020-10-28] MEDS: ACCU-CHEK COMFORT CURVE STRIP VI SCH ×5 (00:46→23:40)
[2020-10-28] MEDS: InsuLIN REG 1unit/0.01ml Soln (100units/ml) SC SCH ×5 (00:49→23:40)
[2020-10-28] MEDS ORDERED: HYDROmorphone HCL 2 MG/ML VL IV ONE (01:00)
[2020-10-28] MEDS: ONDANSETRON HCL 4 MG/2 ML VIAL IV PRN (01:24)
[2020-10-28 04:59] LABS: Hematocrit 27.3 % (41.0-53.0); Hemoglobin 9.4 g/dL (13.5-17.5); Mean Corpuscular Hemoglobin 29.1 pg (28.0-32.0); Mean Corpuscular Hgb Conc. 34.3 g/dL (32.0-36.0); Mean Corpuscular Volume 84.9 fL (80.0-100.0); Red Blood Cells 3.22 10^6/uL (4.5-5.90); Red Cell Distribution Width 14.5 % (11.8-14.3); White Blood Cell 5.7 10^3/uL (4.4-10.8)
[2020-10-28 05:03] LABS: Calcium 7.5 mg/dL (8.5-10.1); Potassium 4.1 mmol/L (3.5-5.1)
[2020-10-28 05:13] LABS: Basophils % (manual) 0 (0.0-2.0); Blast Cells 0; Metamyelocytes % 0; Myelocytes % 0; Promyelocytes % 0; Reactive Lymphocytes 0
[2020-10-28] MEDS: INSULIN LANTUS (GLARGINE) 1 /0.01ml (100units/ml) SC SCH (06:10)
[2020-10-28 06:52] LABS: Band Neutrophils % (manual) 8; Eosinophils % (manual) 5 (0-7); Lymphocytes % (manual) 4 (10.0-50.0); Monocytes % (manual) 3 (0-12)
[2020-10-28] MEDS: PANTOPRAZOLE 40 MG/10 ML VIAL INJ IV SCH ×2 (10:00→21:33)
[2020-10-28] MEDS: DOXYCYCLINE 100 MG TAB/CAP PEG SCH ×2 (10:00→21:33)
[2020-10-28] MEDS: MUPIROCIN 2% OINT 15gm or 22gm EACHNOSTRI SCH ×2 (10:00→21:33)
[2020-10-28] MEDS: MEROPENEM 500MG IVPB 50 ML IV SCH (10:00)
[2020-10-28] MEDS: FUROSEMIDE 20 MG/2 ML VIAL IV SCH (10:00)
[2020-10-28] MEDS: MULTIPLE VITAMIN TAB PO SCH (10:00)
[2020-10-28] MEDS: SODIUM FERR GLUC 62.5MG/5ML 125 MG in SODIUM CHL 0.9% 100 ML IV SCH (12:00)
[2020-10-28] MEDS: MORPHINE SULFATE INJECTION 2 MG/ML SYRG IV PRN ×3 (12:10→22:55)
[2020-10-28] MEDS: Glucerna 1.2 Cal 1Liter BOTTLE GT SCH (14:34)
[2020-10-28] MEDS: DEXTROSE (50%) 50ML SYRG IV PRN (17:58)
[2020-10-28] MEDS: LORazepam 2MG/ML-1ML VIAL IV PRN (21:33)
[2020-10-29] VITALS (24 sets, daily range): BP systolic 72–167; BP diastolic 39–87
[2020-10-29] MEDS: MORPHINE SULFATE INJECTION 2 MG/ML SYRG IV PRN ×2 (03:00→21:26)
[2020-10-29] MEDS ORDERED: POTASSIUM CHL 20MEQ/100ML 100 ML IV SCH (04:15)
[2020-10-29] MEDS: ACCU-CHEK COMFORT CURVE STRIP VI SCH ×3 (05:50→17:45)
[2020-10-29] MEDS: InsuLIN REG 1unit/0.01ml Soln (100units/ml) SC SCH ×3 (05:50→17:45)
[2020-10-29] MEDS: INSULIN LANTUS (GLARGINE) 1 /0.01ml (100units/ml) SC SCH (06:23)
[2020-10-29] MEDS: MUPIROCIN 2% OINT 15gm or 22gm EACHNOSTRI SCH (10:06)
[2020-10-29] MEDS: FUROSEMIDE 20 MG/2 ML VIAL IV SCH (10:07)
[2020-10-29] MEDS: PANTOPRAZOLE 40 MG/10 ML VIAL INJ IV SCH ×2 (10:07→21:23)
[2020-10-29] MEDS: DOCUSATE ORAL LIQUID 100 MG/10 ML UD GT PRN (10:07)
[2020-10-29] MEDS: MULTIPLE VITAMIN TAB PO SCH (10:07)
[2020-10-29] MEDS: DOXYCYCLINE 100 MG TAB/CAP PEG SCH ×2 (10:07→21:23)
[2020-10-29] MEDS: MEROPENEM 500MG IVPB 50 ML IV SCH (10:07)
[2020-10-29] MEDS: SODIUM FERR GLUC 62.5MG/5ML 125 MG in SODIUM CHL 0.9% 100 ML IV SCH (12:02)
[2020-10-29] MEDS: Glucerna 1.2 Cal 1Liter BOTTLE GT SCH (14:46)
[2020-10-29] MEDS: LORazepam 2MG/ML-1ML VIAL IV PRN (15:04)
[2020-10-29] MEDS: hydrALAZINE HCL 20 MG/ML VL IV PRN (23:42)
[2020-10-29] MEDS: ONDANSETRON HCL 4 MG/2 ML VIAL IV PRN (23:43)
[2020-10-29] MEDS ORDERED: LORazepam 2MG/ML-1ML VIAL IV PRN (23:45)
[2020-10-30] VITALS (23 sets, daily range): BP systolic 83–138; BP diastolic 47–78
[2020-10-30] MEDS: ACCU-CHEK COMFORT CURVE STRIP VI SCH ×4 (00:36→17:42)
[2020-10-30] MEDS: InsuLIN REG 1unit/0.01ml Soln (100units/ml) SC SCH ×4 (06:00→17:42)
[2020-10-30 06:05] LABS: Basophils # (auto) 0 10 ^3/uL (0-0.2); Basophils % (auto) 0.2 % (0.0-2.0); Eosinophils # (auto) 0.4 10 ^3/uL (0-0.8); Eosinophils % (auto) 8.9 % (0.0-7.0); Hematocrit 27.3 % (41.0-53.0); Hemoglobin 9.5 g/dL (13.5-17.5); Lymphocytes # (auto) 0.6 10 ^3/uL (0.4-5.4); Lymphocytes % (auto) 12.4 % (10.0-50.0); Mean Corpuscular Hemoglobin 30.1 pg (28.0-32.0); Mean Corpuscular Hgb Conc. 34.8 g/dL (32.0-36.0); Mean Corpuscular Volume 86.3 fL (80.0-100.0); Monocytes # (auto) 0.2 10 ^3/uL (0-1.3); Monocytes % (auto) 4.6 % (0.0-12.0); Neutrophils # (auto) 3.4 10 ^3/uL (1.6-8.6); Neutrophils % (auto) 73.9 % (37.0-80.0); Nucleated Red Blood Cells % 0.1 %; Red Blood Cells 3.17 10^6/uL (4.5-5.90); Red Cell Distribution Width 15.6 % (11.8-14.3); White Blood Cell 4.6 10^3/uL (4.4-10.8)
[2020-10-30 06:20] LABS: Potassium 4.1 mmol/L (3.5-5.1)
[2020-10-30 06:30] LABS: BUN/Creatinine Ratio 20.9; Calcium 7.3 mg/dL (8.5-10.1)
[2020-10-30] MEDS: INSULIN LANTUS (GLARGINE) 1 /0.01ml (100units/ml) SC SCH (07:00)
[2020-10-30] MEDS: MULTIPLE VITAMIN TAB PO SCH (09:48)
[2020-10-30] MEDS: MEROPENEM 500MG IVPB 50 ML IV SCH (09:49)
[2020-10-30] MEDS: PANTOPRAZOLE 40 MG/10 ML VIAL INJ IV SCH ×2 (09:49→21:40)
[2020-10-30] MEDS: DOXYCYCLINE 100 MG TAB/CAP PEG SCH ×2 (09:50→21:23)
[2020-10-30] MEDS: FUROSEMIDE 20 MG/2 ML VIAL IV SCH (09:50)
[2020-10-30] MEDS ORDERED: Glucerna 1.2 Cal 1Liter BOTTLE GT SCH (11:45)
[2020-10-30] MEDS: SODIUM FERR GLUC 62.5MG/5ML 125 MG in SODIUM CHL 0.9% 100 ML IV SCH (12:29)
[2020-10-30] MEDS ORDERED: VALPROIC ACID 250 MG/5 ML ORAL SOLN GT SCH (14:00)
[2020-10-30] MEDS: VALPROIC ACID 250 MG/5 ML ORAL SOLN GT SCH (17:52)
[2020-10-30] MEDS: DONEPEZIL HYDROCHLORIDE 5 MG TAB PO SCH (21:24)
[2020-10-30] MEDS: QUEtiapine FUMARATE 100 MG TAB PO SCH (21:25)
[2020-10-31] VITALS (8 sets, daily range): BP systolic 95–151; BP diastolic 53–79
[2020-10-31 05:10] LABS: Basophils # (auto) 0 10 ^3/uL (0-0.2); Basophils % (auto) 0.9 % (0.0-2.0); Eosinophils # (auto) 0.4 10 ^3/uL (0-0.8); Eosinophils % (auto) 12.3 % (0.0-7.0); Hematocrit 27.7 % (41.0-53.0); Hemoglobin 9.3 g/dL (13.5-17.5); Lymphocytes # (auto) 0.6 10 ^3/uL (0.4-5.4); Lymphocytes % (auto) 17.2 % (10.0-50.0); Mean Corpuscular Hemoglobin 29.4 pg (28.0-32.0); Mean Corpuscular Hgb Conc. 33.5 g/dL (32.0-36.0); Mean Corpuscular Volume 87.6 fL (80.0-100.0); Monocytes # (auto) 0.2 10 ^3/uL (0-1.3); Monocytes % (auto) 4.8 % (0.0-12.0); Neutrophils # (auto) 2.3 10 ^3/uL (1.6-8.6); Neutrophils % (auto) 64.8 % (37.0-80.0); Nucleated Red Blood Cells % 0.1 %; Red Blood Cells 3.16 10^6/uL (4.5-5.90); Red Cell Distribution Width 16.8 % (11.8-14.3); White Blood Cell 3.5 10^3/uL (4.4-10.8)
[2020-10-31] MEDS: ACCU-CHEK COMFORT CURVE STRIP VI SCH ×4 (05:29→18:00)
[2020-10-31] MEDS: InsuLIN REG 1unit/0.01ml Soln (100units/ml) SC SCH ×4 (05:29→18:00)
[2020-10-31 05:32] LABS: BUN/Creatinine Ratio 18.4; Calcium 7.3 mg/dL (8.5-10.1); Potassium 4.2 mmol/L (3.5-5.1)
[2020-10-31] MEDS: INSULIN LANTUS (GLARGINE) 1 /0.01ml (100units/ml) SC SCH (05:59)
[2020-10-31] MEDS ORDERED: CITALOPRAM HYDROBR 20 MG TAB PO SCH (10:00)
[2020-10-31] MEDS: MEROPENEM 500MG IVPB 50 ML IV SCH (10:23)
[2020-10-31] MEDS: PANTOPRAZOLE 40 MG/10 ML VIAL INJ IV SCH ×2 (10:23→21:31)
[2020-10-31] MEDS: FUROSEMIDE 20 MG/2 ML VIAL IV SCH (10:24)
[2020-10-31] MEDS: MULTIPLE VITAMIN TAB PO SCH (10:25)
[2020-10-31] MEDS: DOXYCYCLINE 100 MG TAB/CAP PEG SCH ×2 (10:25→21:31)
[2020-10-31] MEDS: VALPROIC ACID 250 MG/5 ML ORAL SOLN GT SCH ×2 (10:25→21:32)
[2020-10-31] MEDS: SODIUM FERR GLUC 62.5MG/5ML 125 MG in SODIUM CHL 0.9% 100 ML IV SCH (12:30)
[2020-10-31] MEDS: ACETAMINOPHEN 325 MG TAB PO PRN (12:54)
[2020-10-31] MEDS: DOCUSATE ORAL LIQUID 100 MG/10 ML UD GT PRN (18:00)
[2020-10-31] MEDS: DONEPEZIL HYDROCHLORIDE 5 MG TAB PO SCH (21:31)
[2020-10-31] MEDS: QUEtiapine FUMARATE 100 MG TAB PO SCH (21:32)
== END 2020-10-31 22:30 | DRG 4 ==
LOC: EDBD 18:05 → EDUNIT# 18:05 → ER 18:05 → TELE 18:06 → DOU IN ICU 10-10 05:42 → TELE-WESTW 10-31 06:30
PROVIDERS: ADMIT Nurse Practitioner Family; ATTEND Internal Medicine Pulmonary Disease
PROC: 5A1955Z Respiratory Ventilation, Greater than 96 Consecutive Hours (ICD-10-PCS; principal; 2020-10-02)
PROC: 0BH17EZ Insertion of Endotracheal Airway into Trachea, Via Natural or Artificial Opening (ICD-10-PCS; 2020-10-02)
PROC: 02HV33Z Insertion of Infusion Device into Superior Vena Cava, Percutaneous Approach (ICD-10-PCS; 2020-10-02)
PROC: XW13325 Transfusion of Convalescent Plasma (Nonautologous) into Peripheral Vein, Percutaneous Approach, New Technology Group 5 (ICD-10-PCS; 2020-10-04)
PROC: 5A1955Z Respiratory Ventilation, Greater than 96 Consecutive Hours (ICD-10-PCS; 2020-10-15)
PROC: 0BH17EZ Insertion of Endotracheal Airway into Trachea, Via Natural or Artificial Opening (ICD-10-PCS; 2020-10-15)
PROC: 0W9B30Z Drainage of Left Pleural Cavity with Drainage Device, Percutaneous Approach (ICD-10-PCS; 2020-10-16)
PROC: 0B110F4 Bypass Trachea to Cutaneous with Tracheostomy Device, Open Approach (ICD-10-PCS; 2020-10-22)
PROC: 0DH63UZ Insertion of Feeding Device into Stomach, Percutaneous Approach (ICD-10-PCS; 2020-10-23)
PROC: 06HN33Z Insertion of Infusion Device into Left Femoral Vein, Percutaneous Approach (ICD-10-PCS; 2020-10-25)
PROC: B54CZZA Ultrasonography of Left Lower Extremity Veins, Guidance (ICD-10-PCS; 2020-10-25)
DX: A41.9 Sepsis, unspecified organism (principal); J15.212 Pneumonia due to Methicillin resistant Staphylococcus aureus; E11.10 Type 2 diabetes mellitus with ketoacidosis without coma; J12.82 Pneumonia due to coronavirus disease 2019; J96.01 Acute respiratory failure with hypoxia; G93.41 Metabolic encephalopathy; U07.1 COVID-19; R57.8 Other shock; E87.0 Hyperosmolality and hypernatremia; J93.9 Pneumothorax, unspecified; Z99.11 Dependence on respirator [ventilator] status; N17.9 Acute kidney failure, unspecified; E11.65 Type 2 diabetes mellitus with hyperglycemia; E87.5 Hyperkalemia; E11.21 Type 2 diabetes mellitus with diabetic nephropathy; E66.9 Obesity, unspecified; K29.70 Gastritis, unspecified, without bleeding; R13.10 Dysphagia, unspecified; I10 Essential (primary) hypertension; J98.2 Interstitial emphysema; Z83.3 Family history of diabetes mellitus; A49.02 Methicillin resistant Staphylococcus aureus infection, unspecified site
CPT/HCPCS: 36415; 36600; 43246; 51702; 70450; 71045; 76775; 80048; 80053; 81001; 82010; 82040; 82728; 82805; 82962; 83615; 83735; 84132; 84484; 85007; 85025; 85027; 85610; 85730; 86141; 86850; 86900; 86901; 87040; 87070; 87077; 87081; 87186; 87205; 87426; 93005; 94002; 94003; 94640; 96365; 96372; C9113; G0378; J0330; J0610; J0696; J1100; J1815; J1956; J2185; J2250; J2405; J2704; J7060